=== PATIENT | male | born 2000 | race Caucasian/White ===

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

== ENCOUNTER 2022-09-13 16:19 | Emergency (ER) | payer OTHER ==
--- NOTE | 2022-09-13 16:58 | RAD REPORT ---
EXAM DESCRIPTION: CT - Spine Lumbar Wo Con - 09/13/2022 4:51 pm CLINICAL HISTORY: Radiculopathy. low back pain, radiation to legs COMPARISON: Spine Lumbar Wo Con dated 01/04/2021 TECHNIQUE: Axial noncontrast CT imaging of the lumbar spine was performed with coronal and sagittal re-formatted images. All CT scans are performed using dose optimization technique as appropriate and may include automated exposure control or mA/KV adjustment according to patient size. FINDINGS: No acute lumbar spine fracture seen. No aggressive marrow pattern or malalignment. Paraspinal tissues are normal in thickness. No paraspinal abscess or hematoma seen. There is likely a large disc herniation at L3-4 resulting in spinal canal stenosis. IMPRESSION: There is likely a large disc herniation at L3-4 resulting in spinal canal stenosis. No acute fracture.
--- NOTE | 2022-09-13 17:16 | ER ---
Nurse's Notes [facility] Name: Ritesh Mcmillan Age: 21 yrs Sex: Male : 2000 Arrival Date: 09/13/2022 Time: 16:21 Bed IW1 Private MD: Diagnosis: Other intervertebral disc disorders, lumbar region Presentation: 09/13 16:28 Chief complaint: Patient states: low back pain radiating down legs x 1 week ago. aa5 Coronavirus screen: At this time, the client does not indicate any symptoms associated with coronavirus-19. Ebola Screen: Patient denies travel to an Ebola-affected area in the 21 days before illness onset. Initial Sepsis Screen: Does the patient meet any 2 criteria? No. Patient's initial sepsis screen is negative. Does the patient have a suspected source of infection? No. Patient's initial sepsis screen is negative. Risk Assessment: Do you want to hurt yourself or someone else? Patient reports no desire to harm self or others. Onset of symptoms was August 2022. 16:28 Acuity: MARY JANE 4 aa5 16:28 Method Of Arrival: Ambulatory aa5 Historical: - Allergies: 16:28 Adderall; aa5 - PMHx: 16:28 ADD/ADHD; Hypertension; aa5 - Family history:: not pertinent. - Hospitalizations: : No recent hospitalization is reported. Vital Signs: 16:28 BP 118 / 81; Pulse 85; Resp 20 S; Temp 98.0(TE); Pulse Ox 100% on R/A; Weight 163.29 kg aa5 (R); Height 5 ft. 9 in. (175.26 cm) (R); 17:45 BP 122 / 80; Pulse 79; Resp 20; Pulse Ox 98% on R/A; vg1 16:28 Body Mass Index 53.16 (163.29 kg, 175.26 cm) aa5 ED Course: 16:21 Patient arrived in ED. as 16:27 Blair Moore MD is Attending Physician. rn 16:28 Arm band placed on. aa5 16:29 Triage completed. aa5 16:53 CT Lumbar Spine Wo Con In Process Unspecified. EDMS 18:09 Patient has correct armband on for positive identification. vg1 18:09 No provider procedures requiring assistance completed. Patient did not have IV access vg1 during this emergency room visit. Administered Medications: 17:48 Drug: Ketorolac 30 mg Route: IM; Site: right deltoid; vg1 18:10 Follow up: Response: No adverse reaction vg1 17:50 Drug: Decadron (dexamethasone) 10 mg Route: IM; Site: left deltoid; vg1 18:10 Follow up: Response: No adverse reaction vg1 Medication: 18:09 VIS not applicable for this client. vg1 Outcome: 17:16 Discharge ordered by . rn 18:08 Discharged to home ambulatory, with family. vg1 18:08 Condition: good 18:08 Discharge instructions given to patient, family, Instructed on discharge instructions, follow up and referral plans. medication usage, Demonstrated understanding of instructions, follow-up care, medications, Prescriptions given X 1. 18:10 Patient left the ED. vg1 Signatures: Dispatcher [employer] Dyan Pina Roman, MD MD rn Calderon, Audri RN RN aa5 Radha Flores RN RN vg1 Corrections: (The following items were deleted from the chart) 16:29 16:28 BP 118 / 81; Pulse 85bpm; Resp 20bpm; Spontaneous; Pulse Ox 100% RA; Temp 98.0F aa5 Temporal; aa5
--- NOTE | 2022-09-13 17:16 | EDPHYS ---
Physician Documentation [facility] Name: Ritesh Mcmillan Age: 21 yrs Sex: Male : 2000 Arrival Date: 09/13/2022 Time: 16:21 Bed IW1 Private MD: ED Physician Blair Moore HPI: 09/13 17:11 This 21 yrs old Male presents to ER via Ambulatory with complaints of Back Pain, Leg rn Pain. 17:11 The patient presents with pain that is acute. The patient presents with pain that is pattern cleaner, with no known mechanism of injury. The symptoms are located in the low back. Onset: The symptoms/episode began/occurred 1 week(s) ago. The pain radiates to the right leg and left leg. Associated signs and symptoms: Pertinent negatives: abdominal pain, fever, hematuria, incontinence, numbness, urinary retention, vomiting, weakness. Modifying factors: The patient symptoms are alleviated by nothing, the patient symptoms are aggravated by lifting, walking. Severity of symptoms: At their worst the symptoms were moderate, in the emergency department the symptoms are unchanged. The patient has not experienced similar symptoms in the past. The patient has not recently seen a physician. Pt reports low back pain, no direct trauma, family with hx of early disc problems and degenerative disc disease. Was moving boxes this past week with lifting and bending. No weakness of legs, no bowel/bladder problems. . Historical: - Allergies: 16:28 Adderall; aa5 - PMHx: 16:28 ADD/ADHD; Hypertension; aa5 - Family history:: not pertinent. - Hospitalizations: : No recent hospitalization is reported. ROS: 17:11 Constitutional: Negative for fever, chills, and weight loss, Eyes: Negative for injury, rn pain, redness, and discharge, Cardiovascular: Negative for chest pain, palpitations, and edema, Respiratory: Negative for shortness of breath, cough, wheezing, and pleuritic chest pain, Abdomen/GI: Negative for abdominal pain, nausea, vomiting, diarrhea, and constipation, Back: + lower back pain MS/Extremity: Negative for injury and deformity, Skin: Negative for injury, rash, and discoloration, Neuro: Negative for headache, weakness, numbness, tingling, and seizure. Exam: 17:11 Constitutional: Overweight male, no acute distress, ambulatory without assistance to nicu rn room. Cardiovascular: Regular rate and rhythm. No pulse deficits. Back: No spinal tenderness. MS/ Extremity: Pulses equal, no cyanosis. Neurovascular intact. Full, normal range of motion. Equal circumference. Neuro: Awake and alert, GCS 15, oriented to person, place, time, and situation Motor strength 5/5 in all extremities. Sensory grossly intact. Cerebellar exam normal. Normal gait. Vital Signs: 16:28 BP 118 / 81; Pulse 85; Resp 20 S; Temp 98.0(TE); Pulse Ox 100% on R/A; Weight 163.29 kg aa5 (R); Height 5 ft. 9 in. (175.26 cm) (R); 17:45 BP 122 / 80; Pulse 79; Resp 20; Pulse Ox 98% on R/A; vg1 16:28 Body Mass Index 53.16 (163.29 kg, 175.26 cm) aa5 MDM: 16:28 Patient medically screened. rn 17:11 Differential diagnosis: arthritis, Fatigue Fracture Obesity Osteoarthritis ruptured rn disc, disc herniation, radiculopathy. Data reviewed: vital signs, nurses notes, radiologic studies, CT scan, and as a result, I will discharge patient. Counseling: I had a detailed discussion with the patient and/or guardian regarding: the historical points, exam findings, and any diagnostic results supporting the discharge/admit diagnosis, radiology results, the need for outpatient follow up, to return to the emergency department if symptoms worsen or persist or if there are any questions or concerns that arise at home. Special discussion: I discussed with the patient/guardian in detail that at this point there is no indication for admission to the hospital. It is understood, however, that if the symptoms persist or worsen the patient needs to return immediately for re-evaluation. Based on the history and exam findings, there is no indication for further emergent testing or inpatient evaluation. I discussed with the patient/guardian the need to see the back specialist for further evaluation of the symptoms. I discussed with the patient/guardian the need to see the primary care provider for further evaluation of the symptoms. 09/13 16:34 Order name: CT Lumbar Spine Wo Con; Complete Time: 17:08 rn Administered Medications: 17:48 Drug: Ketorolac 30 mg Route: IM; Site: right deltoid; vg1 18:10 Follow up: Response: No adverse reaction vg1 17:50 Drug: Decadron (dexamethasone) 10 mg Route: IM; Site: left deltoid; vg1 18:10 Follow up: Response: No adverse reaction vg1 Disposition Summary: 09/13/22 17:16 Discharge Ordered Location: Home rn Problem: new rn Symptoms: are unchanged rn Condition: Stable rn Diagnosis - Other intervertebral disc disorders, lumbar region rn Followup: rn - With: Private Physician - When: As needed - Reason: Recheck today's complaints, Re-evaluation by your physician Discharge Instructions: - Discharge Summary Sheet rn - Herniated Disk rn - Degenerative Disk Disease rn Forms: - Medication Reconciliation Form rn - Thank You Letter rn - Antibiotic rn diabetes educator - Prescription Opioid Use rn Prescriptions: - Medrol (Morro) 4 mg Oral Tablets, Dose Pack - take 1 tablet by ORAL route as directed - follow package instructions; 1 rn packet; Refills: 0, Product Selection Permitted Signatures: Dispatcher [employer] Blair Ramsey MD MD rn Calderon, Audri, RN RN aa5 Radha Flores, RN RN vg1
[2022-09-13] MEDS ORDERED: dexAMETHasone 10 MG/ML VIAL ONE (17:47)
[2022-09-13] MEDS ORDERED: KETOROLAC 30 MG/ML INJ ONE (17:47)
[2022-09-13 18:16] VITALS: TEMP 98
[2022-09-13 18:17] VITALS: BP 122/80; O2SAT 98
== END 2022-09-13 18:10 | disposition home or self-care (01) ==
LOC: ER 16:19
DX: M51.86 Other intervertebral disc disorders, lumbar region (principal); F90.9 Attention-deficit hyperactivity disorder, unspecified type; I10 Essential (primary) hypertension; Z88.8 Allergy status to other drugs, medicaments and biological substances
CPT/HCPCS: 72131; J1100

== ENCOUNTER 2022-10-04 04:33 | Emergency (ER) | payer OTHER ==
--- NOTE | 2022-10-04 05:02 | ER ---
Nurse's Notes [facility] Name: Ritesh Mcmillan Age: 21 yrs Sex: Male : 2000 Arrival Date: 10/04/2022 Time: 04:35 Bed 20 Private MD: Diagnosis: Low back pain;Radiculopathy, lumbar region Presentation: 10/04 04:53 Chief complaint: Parent and/or Guardian states: pt was seen Sep 13 with a herniated bb disc at L3-4 has not been able to follow-up yet and the pain is getting worse and radiating down his left leg. Coronavirus screen: At this time, the client does not indicate any symptoms associated with coronavirus-19. Ebola Screen: No symptoms or risks identified at this time. Initial Sepsis Screen: Does the patient meet any 2 criteria? No. Patient's initial sepsis screen is negative. Does the patient have a suspected source of infection? No. Patient's initial sepsis screen is negative. Risk Assessment: Do you want to hurt yourself or someone else? Patient reports no desire to harm self or others. Onset of symptoms was October 04, 2022. 04:53 Method Of Arrival: Ambulatory 04:53 Acuity: MARY JANE 5 bb Triage Assessment: 05:10 General: Appears in no apparent distress. Behavior is calm, cooperative. Pain: aa9 Complains of pain in low back area. Historical: - Allergies: 04:55 Adderall; bb - Home Meds: 04:55 lisinopril 30 mg Oral tab 1 tab once daily [Active]; bb - PMHx: 04:55 ADD/ADHD; Hypertension; Herniated disc L3-4; bb - PSHx: 04:55 None; bb - Immunization history:: Client reports receiving the 2nd dose of the Covid vaccine, Pfizer. - Social history:: Smoking status: Patient denies any tobacco usage or history of. - Family history:: not pertinent. Screenin:10 [facility] ED Fall Risk Assessment (Adult) History of falling in the last 3 months, aa9 including since admission No falls in past 3 months (0 pts) Confusion or Disorientation No (0 pts) Intoxicated or Sedated No (0 pts) Impaired Gait No (0 pts) Mobility Assist Device Used No (0 pt) Altered Elimination No (0 pt) Score/Fall Risk Level 0 - 2 = Low Risk Oriented to surroundings, Maintained a safe environment. Abuse screen: Denies threats or abuse. Denies injuries from another. Nutritional screening: No deficits noted. Tuberculosis screening: No symptoms or risk factors identified. Assessment: 05:13 General: Appears comfortable, obese, Behavior is calm, cooperative. Pain: Complains of aa9 pain in low back area. Respiratory: Airway is patent Respiratory effort is even, unlabored. GI: No signs and/or symptoms were reported involving the gastrointestinal system. : No signs and/or symptoms were reported regarding the genitourinary system. Derm: Skin is intact. Vital Signs: 04:53 BP 132 / 84; Pulse 77; Resp 20 S; Temp 98(O); Pulse Ox 96% on R/A; Weight 164.65 kg bb (R); Height 5 ft. 10 in. (177.80 cm) (R); Pain 8/10; 05:11 BP 135 / 75; Pulse 79; Resp 19 S; Pulse Ox 98% on R/A; aa9 05:22 Weight 152.86 kg (M); bb 04:53 Body Mass Index 52.08 (152.86 kg, 177.80 cm) bb ED Course: 04:35 Patient arrived in ED. ja2 04:48 Jazmin Pearson, RN is Primary Nurse. aa9 04:49 Leo Morales MD is Attending Physician. rt 04:55 Triage completed. bb 04:55 Arm band placed on Patient placed in an exam room, on a stretcher, on pulse oximetry. bb Family accompanied patient. 05:10 No provider procedures requiring assistance completed. Patient did not have IV access aa9 during this emergency room visit. 05:11 Patient has correct armband on for positive identification. Adult w/ patient. aa9 Administered Medications: 05:09 Drug: Decadron (dexamethasone) 10 mg Route: IM; Site: right deltoid; aa9 05:16 Follow up: Response: No adverse reaction aa9 05:10 Drug: Ketorolac 30 mg Route: IM; Site: left deltoid; aa9 05:16 Follow up: Response: No adverse reaction aa9 Medication: 05:10 VIS not applicable for this client. aa9 Outcome: 05:00 Discharge ordered by . rt 05:11 Condition: stable aa9 05:16 Discharged to home ambulatory, with family. aa9 05:16 Discharge instructions given to patient, family, Instructed on discharge instructions, follow up and referral plans. medication usage, Demonstrated understanding of instructions, follow-up care, medications, Prescriptions given X 1. 05:18 Patient left the ED. aa9 Signatures: Keira Torres, RN RN bb Adela Eaton Aylin, RN RN aa9 Leo Morales MD MD rt
--- NOTE | 2022-10-04 05:02 | EDPHYS ---
Physician Documentation [facility] Name: Ritesh Mcmillan Age: 21 yrs Sex: Male : 2000 Arrival Date: 10/04/2022 Time: 04:35 Bed 20 Private MD: ED Physician Leo Morales HPI: 10/04 05:03 This 21 yrs old Male presents to ER via Ambulatory with complaints of Low Back Pain. rt 05:03 Patient presents to the ED with a left low back pain. He was recently diagnosed with rt protruding disks, is having difficulty getting in with a spine surgeon. Patient states that the pain has worsened overnight, keeping up from sleeping. He has pain radiating down posteriorly down his left leg. Denies bowel, bladder incontinence, saddle anesthesia. Symptoms are aching nature, not otherwise radiating, no other aggravating or elevating factors.. Historical: - Allergies: 04:55 Adderall; bb - Home Meds: 04:55 lisinopril 30 mg Oral tab 1 tab once daily [Active]; bb - PMHx: 04:55 ADD/ADHD; Hypertension; Herniated disc L3-4; bb - PSHx: 04:55 None; bb - Immunization history:: Client reports receiving the 2nd dose of the Covid vaccine, ZYOMYX. - Social history:: Smoking status: Patient denies any tobacco usage or history of. - Family history:: not pertinent. ROS: 05:03 Constitutional: Negative for fever, chills, and weight loss, Cardiovascular: Negative rt for chest pain, palpitations, and edema, Respiratory: Negative for shortness of breath, cough, wheezing, and pleuritic chest pain, Abdomen/GI: Negative for abdominal pain, nausea, vomiting, diarrhea, and constipation, : Negative for injury, bleeding, discharge, and swelling, Neuro: Negative for headache, weakness, numbness, tingling, and seizure. 05:03 Back: Positive for pain at rest, radiated pain. Exam: 05:03 Constitutional: This is a well developed, well nourished patient who is awake, alert, rt and in no acute distress. Head/Face: Normocephalic, atraumatic. Chest/axilla: Normal chest wall appearance and motion. Nontender with no deformity. No lesions are appreciated. Cardiovascular: Regular rate and rhythm with a normal S1 and S2. No gallops, murmurs, or rubs. Normal PMI, no JVD. No pulse deficits. Respiratory: Lungs have equal breath sounds bilaterally, clear to auscultation and percussion. No rales, rhonchi or wheezes noted. No increased work of breathing, no retractions or nasal flaring. Abdomen/GI: Soft, non-tender, with normal bowel sounds. No distension or tympany. No guarding or rebound. No evidence of tenderness throughout. Skin: Warm, dry with normal turgor. Normal color with no rashes, no lesions, and no evidence of cellulitis. MS/ Extremity: Pulses equal, no cyanosis. Neurovascular intact. Full, normal range of motion. Neuro: Awake and alert, GCS 15, oriented to person, place, time, and situation. Cranial nerves II-XII grossly intact. Motor strength 5/5 in all extremities. Sensory grossly intact. Cerebellar exam normal. Normal gait. Psych: Awake, alert, with orientation to person, place and time. Behavior, mood, and affect are within normal limits. 05:03 Back: Left lower lumbar paraspinal tenderness, no midline tenderness or step-off. Vital Signs: 04:53 BP 132 / 84; Pulse 77; Resp 20 S; Temp 98(O); Pulse Ox 96% on R/A; Weight 164.65 kg bb (R); Height 5 ft. 10 in. (177.80 cm) (R); Pain 8/10; 05:11 BP 135 / 75; Pulse 79; Resp 19 S; Pulse Ox 98% on R/A; aa9 05:22 Weight 152.86 kg (M); bb 04:53 Body Mass Index 52.08 (152.86 kg, 177.80 cm) bb MDM: 04:53 Patient medically screened. rt 05:03 Differential diagnosis: Herniated disc Chronic back pain, spinal epidural abscess, rt cauda equina syndrome. Data reviewed: vital signs, nurses notes. Test considered but Not performed: CT: Recent CT scan showed protruding disc, repeat scan not indicated. No emergent need for MRI.. Historians other than the Patient: Parent: Mother provided most of the history. Counseling: I had a detailed discussion with the patient and/or guardian regarding: the historical points, exam findings, and any diagnostic results supporting the discharge/admit diagnosis, the need for outpatient follow up. Administered Medications: 05:09 Drug: Decadron (dexamethasone) 10 mg Route: IM; Site: right deltoid; aa9 05:16 Follow up: Response: No adverse reaction aa9 05:10 Drug: Ketorolac 30 mg Route: IM; Site: left deltoid; aa9 05:16 Follow up: Response: No adverse reaction aa9 Disposition Summary: 10/04/22 05:00 Discharge Ordered Location: Home rt Problem: an ongoing problem rt Symptoms: are unchanged rt Condition: Stable rt Diagnosis - Low back pain rt - Radiculopathy, lumbar region rt Followup: rt - With: Private Physician - When: 2 - 3 days - Reason: Discharge Instructions: - Discharge Summary Sheet rt - Lumbosacral Radiculopathy rt Forms: - Medication Reconciliation Form rt - Thank You Letter rt - Antibiotic Education rt - Prescription Opioid Use rt Prescriptions: - Cyclobenzaprine 10 mg Oral Tablet - take 1 tablet by ORAL route every 8 hours As needed; 21 tablet; Refills: 0, rt Product Selection Permitted Signatures: Keira Torres, RN RN bb Jazmin Pearson, PRIYA RN aa9 Leo Morales MD MD rt
[2022-10-04] MEDS ORDERED: dexAMETHasone 10 MG/ML VIAL ONE (05:07)
[2022-10-04] MEDS ORDERED: KETOROLAC 30 MG/ML INJ ONE (05:07)
[2022-10-04 05:23] VITALS: BP 135/75; TEMP 98; O2SAT 98
== END 2022-10-04 05:18 | disposition home or self-care (01) ==
LOC: ER 04:33
DX: M54.16 Radiculopathy, lumbar region (principal); I10 Essential (primary) hypertension; Z88.8 Allergy status to other drugs, medicaments and biological substances
CPT/HCPCS: 96372; 99283; J1100

== ENCOUNTER 2023-05-30 19:29 | Emergency (ER) | payer OTHER, SELFPAY ==
--- OUTSIDE RECORDS SUMMARY | 2023-05-30 19:32 | XMS REPORT | Continuity of Care Document ---
:2000 Author Organization [facility] t Address [address] [place] [address] Care Team Providers Name Role Phone Maximo Jones Primary Care Physician ABBIE LAW Attending Clinician Unavailable Doctor Unassigned, [place] Attending Clinician Unavailable Abbie Viera Attending Clinician Payers Payer Name Policy Type Policy Number Effective Date Expiration Date S ource Problems This patient has no known problems. Allergies, Adverse Reactions, Alerts Allergy Allergy Status Severity Reaction(s) Onset Inactive Treating Comm ents Source Name Type Date Date Clinician HYDROXYZ DRUG Active SOB [facility] INE HCL INGREDI 2-27 ity of 00:00: [place] 00 Medical Branch BIMATOPR DRUG Active Hives Univers OST INGREDI 2-27 ity of 00:00: 00 [facility] Branch Hydroxyz Propensi Active Shortness of Univers ine Hcl ty to Breath 2-27 ity of adverse 00:00: [place] reaction 00 [facility] Bimatopr Propensi Active Hives [place] [facility] ers ost ty to 2-27 ity of adverse 00:00: [place] reaction [facility] DEXTROAM DRUG Active Other-Cmnt Univ ers PHETAMIN 03-22 ity of E-AMPHET 00:00: [place] AMINE 00 Medical Branch Dextroam Propensi Active Other - See Made U nivers phetamin ty to comments 03-22 hyper ity of e-Amphet adverse 00:00: [place] amine reaction 00 Medical s Branch Social History Social Habit Start Date Stop Date Quantity Comments Source Exposure to 2022-09-30 2022-10-10 Not sure [facility] SARS-CoV-2 (event) 00:00:00 09:45:00 Medica l Branch Sex Assigned At [birth year] [facility] 00:00:00 00:00:00 Medical Branch Smoking Status Start Date Stop Date Source Tobacco smoking consumption [facility] Medical unknown Branch Medications Ordered Filled Start Stop Current Ordering Indication Dosage Frequency Signature Comments Components Source Medication Medication Date Date Medication? Clinician (SIG) Name Name fluticasone Yes USE 1-2 Uni vers 50 6-26 SPRAYS ity of mcg/actuati 00:00: EACH [place] on nasal 00 NOSTRIL 2 Medica l spray TIMES A Branch DAY fluticasone Yes USE 1-2 Uni vers 50 6-26 SPRAYS ity of mcg/actuati 00:00: EACH [place] on nasal 00 NOSTRIL 2 Medica l spray TIMES A Branch DAY fluticasone Yes USE 1-2 Uni vers 50 6-26 SPRAYS ity of mcg/actuati 00:00: EACH [place] on nasal 00 NOSTRIL 2 Medica l spray TIMES A Branch DAY fluticasone Yes USE 1-2 Uni vers 50 6-26 SPRAYS ity of mcg/actuati 00:00: EACH [place] on nasal 00 NOSTRIL 2 Medica l spray TIMES A Branch DAY fluticasone Yes USE 1-2 Uni vers 50 6-26 SPRAYS ity of mcg/actuati 00:00: EACH [place] on nasal 00 NOSTRIL 2 Medica l spray TIMES A Branch DAY fluticasone Yes USE 1-2 Uni vers 50 6-26 SPRAYS ity of mcg/actuati 00:00: EACH [place] on nasal 00 NOSTRIL 2 Medica l spray TIMES A Branch DAY Vital Signs Vital Name Observation Time Observation Value Comments Source Body temperature 2022-10-10 16:03:00 36.5 [facility] Body weight 2022-10-10 16:03:00 170.915 kg [facility] Medical [place] Procedures Procedure Date / Time Performing Clinician Source Performed REFERRAL- 2022-12-07 05:01:00 Doctor Munoz [facility] REQUEST/RESPONSE [place] [facility] INSURANCE CORRESPONDENCE 2022-10-19 06:01:00 Doctor Munoz [facility] ASSIGNMENT OF BENEFITS 2022-10-10 15:47:01 Doctor Munoz [facility] [facility] Encounters Start End Encounter Admission Attending Care Care Encounter Source Date/Time Date/Time Type Type Clinicians Facility Department ID 2022-12-07 2022-12-07 Orders Doctor ÁLVAREZ [id number] Univers 00:00:00 00:00:00 Only Unassigned, DANIELA [id number] ity of [facility] [id number] [place] [phone] [facility] 009 Branch 2022-10-19 2022-10-19 Orders Doctor ÁLVAREZ [id number] Univers 00:00:00 00:00:00 Only Unassigned, DANIELA [id number] ity of [facility] [id number] [place] as [id number] [facility] 009 Branch 2022-10-10 2022-10-10 Office [facility] [id number] Univers 10:20:00 10:40:00 Visit Abbie PRIMARY [id number] [id number] [id number] Mo [facility]ical 198 Branch 2022-10-10 2022-10-10 Outpatient R [facility] [id number] Univers 10:20:00 10:20:00 ABBIE [facility] [facility] [place] 2022-10-10 2022-10-10 Orders Doctor PREETI [id number] Univers 00:00:00 00:00:00 Only Unassigned, DANIELA [id number] ity of [place] [facility] [id number] [place] [phone] [facility] 009 Branch Results This patient has no known results.
[2023-05-30 21:18] LABS: Absolute Lymphocytes (CBC) 1.4 K/uL (0.7-4.9); Hematocrit 40.2 % (39.6-49.0); Lymphocytes % 14.6 % (15.3-44.8); MCV 89.2 fL (80-100); Platelets 292 thou/uL (152-406)
[2023-05-30 21:19] LABS: Protime INR 1.11
[2023-05-30 21:25] LABS: Troponin High Sensitivity 3.6 pg/mL (<58.9)
--- NOTE | 2023-05-30 21:25 | RAD REPORT ---
EXAM DESCRIPTION: Asht Single View05/30/2023 8:12 pm CLINICAL HISTORY: CHEST PAIN COMPARISON: Chest Single View dated 11/05/2018; Chest Pa And Lat (2 Views) dated 05/02/2016 TECHNIQUE: Portable AP view of the chest. FINDINGS: Under penetration somewhat limits evaluation. The lungs are clear. No pneumothorax or eff usion. The cardiomediastinal contours are unremarkable. IMPRESSION: No acute cardiopulmonary process.
[2023-05-30 21:26] LABS: Potassium 4.3 mEq/L (3.5-5.1)
[2023-05-30 21:27] LABS: Magnesium 2.2 mg/dL (1.6-2.4)
[2023-05-30 21:35] LABS: Methadone ND (NEGATIVE)
[2023-05-30 21:41] LABS: Specific Gravity > 1.030 (1.005-1.030); Urine Bacteria <20 /HPF (<20); Urine Bilirubin NEGATIVE (Negative); Urine Blood Negative (Negative); Urine Clarity Turbid (Clear); Urine Color Yellow (Yellow); Urine Crystals Unidentified Few /HPF (None Seen); Urine Glucose NEGATIVE (Negative); Urine Mucus 4+ /HPF (None Seen); Urine Protein 1+ (Negative); Urine RBC <5 /HPF (None Seen); Urine Urobilinogen Normal (Normal)
[2023-05-30 21:51] LABS: Barbiturates NEGATIVE (NEGATIVE); Benzodiazepines NEGATIVE (NEGATIVE); Cocaine NEGATIVE (NEGATIVE); METHAMPHETAM NEGATIVE (NEGATIVE); Opiates NEGATIVE (NEGATIVE); Phencyclidine NEGATIVE (NEGATIVE); THC Cannibis NEGATIVE (NEGATIVE)
--- NOTE | 2023-05-31 01:16 | ER ---
Nurse's Notes [facility] Name: Ritesh Mcmillan Age: 22 yrs Sex: Male : 2000 Arrival Date: 05/30/2023 Time: 19:29 Bed 13 Private MD: Diagnosis: Chest pain, unspecified;Palpitations Presentation: 05/30 19:59 Chief complaint: Patient states: he has been having chest pain, palpitations, and ap3 inability to sleep for approx one week now. patient also reports cough and sore throat that started today. Coronavirus screen: At this time, the client does not indicate any symptoms associated with coronavirus-19. Ebola Screen: No symptoms or risks identified at this time. Initial Sepsis Screen: Does the patient meet any 2 criteria? No. Patient's initial sepsis screen is negative. Does the patient have a suspected source of infection? No. Patient's initial sepsis screen is negative. Risk Assessment: Do you want to hurt yourself or someone else? Patient reports no desire to harm self or others. Onset of symptoms was May 23, 2023. 19:59 Method Of Arrival: Ambulatory ap3 19:59 Acuity: MARY JANE 3 ap3 Triage Assessment: 20:00 General: Appears in no apparent distress. Behavior is calm, cooperative, appropriate ap3 for age. Pain: Complains of pain in chest. EENT: Reports pain when swallowing. Neuro: Level of Consciousness is awake, alert, obeys commands, Oriented to person, place, time, situation. Cardiovascular: Reports chest pain, Patient's skin is warm and dry. Respiratory: Airway is patent Respiratory effort is even, unlabored, Respiratory pattern is regular, symmetrical. Historical: - Allergies: 20:00 Adderall; ap3 - Home Meds: 20:00 lisinopril 30 mg Oral tab 1 tab once daily [Active]; ap3 - PMHx: 20:00 ADD/ADHD; Herniated disc L3-4; Hypertension; ap3 - Immunization history:: Client reports receiving the 2nd dose of the Covid vaccine. - Social history:: Smoking status: Patient denies any tobacco usage or history of. Screenin:01 [facility] ED Fall Risk Assessment (Adult) History of falling in the last 3 months, ap3 including since admission No falls in past 3 months (0 pts). Abuse screen: Denies threats or abuse. Nutritional screening: No deficits noted. Tuberculosis screening: No symptoms or risk factors identified. Assessment: 20:01 Pain: Pain does not radiate. ap3 20:05 Pain: Pain began 1 WK. jj7 Vital Signs: 19:59 Pulse 85; Resp 19; Temp 99.3; Pulse Ox 99% ; Pain 2/10; ap3 20:01 BP 145 / 70; ap3 21:00 BP 130 / 71; Pulse 81; Resp 20; Pulse Ox 98% ; Pain 0/10; jj7 22:00 BP 127 / 69; Pulse 94; Resp 20; Pulse Ox 99% ; jj7 22:12 Weight 178.7 kg; kmf 23:03 BP 154 / 83; Pulse 91; Resp 20; Pulse Ox 98% ; Pain 0/10; jj7 23:16 BP 113 / 85; Pulse 92; Resp 16; Pulse Ox 100% ; jj7 05/31 00:13 BP 146 / 84; Pulse 83; Resp 19; Pulse Ox 98% ; jj7 01:00 BP 148 / 87; Pulse 85; Resp 18; Pulse Ox 99% ; jj7 01:56 BP 141 / 77; Pulse 82; Resp 20; Pulse Ox 100% ; Pain 0/10; jj7 05/30 19:59 Pain Scale: Adult ap3 21:00 Pain Scale: Adult jj7 23:03 Pain Scale: Adult jj7 01:56 Pain Scale: Adult jj7 ED Course: 05/30 19:35 Patient arrived in ED. jj6 19:48 Alonso Hughes PA is PHCP. cp 19:48 Chandler Zhu DO is Attending Physician. cp 20:00 Triage completed. ap3 20:01 Arm band placed on right wrist. ap3 20:01 Patient maintains SpO2 saturation greater than 95% on room air. ap3 20:05 Juan Antonio Nascimento, PRIYA is Primary Nurse. jj7 20:05 Patient has correct armband on for positive identification. Bed in low position. Call [facility] light in reach. Adult w/ patient. Client placed on continuous cardiac and pulse oximetry monitoring. NIBP monitoring applied. night monitor on. Pulse ox on. NIBP on. 20:14 XRAY Chest (1 view) In Process Unspecified. EDMS 20:35 Pierre Trujillo MD is Attending Physician. cp 20:40 Inserted saline lock: 20 gauge in right hand, using aseptic technique. Blood collected. jj7 20:48 Strep Sent. jj7 20:48 Influenza Screen (a \T\ B) Sent. jj7 20:48 COVID-19 SARS RT PCR Sent. jj7 20:49 Basic Metabolic Panel Sent. jj7 20:49 CBC with Diff Sent. jj7 20:49 D-Dimer Sent. jj7 20:49 Magnesium Sent. jj7 20:49 PT-INR Sent. jj7 20:49 Troponin HS Sent. jj7 22:43 Inserted saline lock: 22 gauge in right antecubital area, using aseptic technique. kmf 23:16 CT Chest For PE Angio In Process Unspecified. EDSD 05/31 01:14 Sudheer Harris MD is Referral Physician. cp 01:56 Provided Education on: DISCHARGE INSTRUCTIONS. jj7 01:56 No provider procedures requiring assistance completed. IV discontinued, intact, jj7 bleeding controlled, No redness/swelling at site. Pressure dressing applied. Administered Medications: No medications were administered Medication: 01:56 VIS not applicable for this client. jj7 Outcome: 01:15 Discharge ordered by . cp 01:56 Discharged to home ambulatory, with family, jj7 01:56 Condition: improved 01:56 Discharge instructions given to patient, Instructed on discharge instructions, Demonstrated understanding of instructions, 02:01 Patient left the ED. jj7 Signatures: Dispatcher [employer] EDSD Alonso Hughes PA PA cp Prokisch, Amanda RN RN [email or web address] Lucretia Mathew jj6 Juan Antonio Nascimento RN RN jj7 Sahyy [facility]
--- NOTE | 2023-05-31 01:16 | EDPHYS ---
Physician Documentation [facility] Name: Ritesh Mcmillan Age: 22 yrs Sex: Male : 2000 Arrival Date: 05/30/2023 Time: 19:29 Bed 13 Private MD: ED Physician Pierre Trujillo HPI: 05/30 20:05 This 22 yrs old Male presents to ER via Ambulatory with complaints of Chest Pain. cp 20:05 The patient or guardian reports chest pain that is located primarily in the anterior cp chest wall. 20:05 The patient presents with a history of irregular heart beat, heart racing. Context: The cp symptoms occur at rest. 20:05 Onset: The symptoms/episode began/occurred 1 week(s) ago. cp 20:05 Associated signs and symptoms: Pertinent positives: cough, sore throat, difficulty cp sleeping, Pertinent negatives: fever, SOB, syncope, lower extremity swelling and/or pain. Historical: - Allergies: 20:00 Adderall; ap3 - Home Meds: 20:00 lisinopril 30 mg Oral tab 1 tab once daily [Active]; ap3 - PMHx: 20:00 ADD/ADHD; Herniated disc L3-4; Hypertension; ap3 - Immunization history:: Client reports receiving the 2nd dose of the Covid vaccine. - Social history:: Smoking status: Patient denies any tobacco usage or history of. ROS: 20:05 Constitutional: Negative for body aches, chills, fever, poor PO intake, cp 20:05 Eyes: Negative for injury, pain, redness, and discharge, cp 20:05 ENT: Negative for drainage from ear(s), ear pain, difficulty swallowing, difficulty handling secretions, 20:05 Cardiovascular: Positive for chest pain, palpitations, Negative for edema, 20:05 Respiratory: Positive for cough, Negative for shortness of breath, wheezing, 20:05 Abdomen/GI: Negative for abdominal pain, vomiting, diarrhea, constipation, 20:05 Back: Negative for pain at rest, pain with movement, 20:05 Neuro: Negative for altered mental status, dizziness, headache, syncope, weakness, 20:05 All other systems are negative, Exam: 20:10 Constitutional: The patient appears in no acute distress, alert, awake, cp non-diaphoretic, non-toxic, well developed, well nourished, obese, 20:10 Head/Face: Normocephalic, atraumatic. cp 20:10 Eyes: Periorbital structures: appear normal, Conjunctiva: normal, no exudate, no injection, Sclera: no appreciated abnormality, Lids and lashes: appear normal, bilaterally, 20:10 ENT: External ear(s): are unremarkable, Nose: is normal, Mouth: Lips: moist, Oral mucosa: pink and intact, moist, Posterior pharynx: Airway: no evidence of obstruction, patent, Tonsils: no enlargement, no erythema, no exudate, 20:10 Neck: ROM/movement: is normal, is supple, without pain, no range of motions limitations, no meningismus, 20:10 Chest/axilla: Inspection: normal, 20:10 Cardiovascular: Rate: normal, Rhythm: regular, Edema: is not appreciated, JVD: is not appreciated, 20:10 Respiratory: the patient does not display signs of respiratory distress, Respirations: normal, no use of accessory muscles, no retractions, labored breathing, is not present, Breath sounds: are clear throughout, no decreased breath sounds, no stridor, no wheezing, 20:10 Abdomen/GI: Inspection: obese Palpation: abdomen is soft and non-tender, in all quadrants, 20:10 Back: pain, is absent, ROM is normal, 20:10 Neuro: Orientation: to person, place \T\ time. Mentation: is normal, Motor: moves all fours, strength is normal, Sensation: is normal, 20:23 ECG was reviewed by the Attending Physician. cp Vital Signs: 19:59 Pulse 85; Resp 19; Temp 99.3; Pulse Ox 99% ; Pain 2/10; ap3 20:01 BP 145 / 70; ap3 21:00 BP 130 / 71; Pulse 81; Resp 20; Pulse Ox 98% ; Pain 0/10; jj7 22:00 BP 127 / 69; Pulse 94; Resp 20; Pulse Ox 99% ; jj7 22:12 Weight 178.7 kg; kmf 23:03 BP 154 / 83; Pulse 91; Resp 20; Pulse Ox 98% ; Pain 0/10; jj7 23:16 BP 113 / 85; Pulse 92; Resp 16; Pulse Ox 100% ; jj7 05/31 00:13 BP 146 / 84; Pulse 83; Resp 19; Pulse Ox 98% ; jj7 01:00 BP 148 / 87; Pulse 85; Resp 18; Pulse Ox 99% ; jj7 01:56 BP 141 / 77; Pulse 82; Resp 20; Pulse Ox 100% ; Pain 0/10; jj7 05/30 19:59 Pain Scale: Adult ap3 21:00 Pain Scale: Adult jj7 23:03 Pain Scale: Adult jj7 01:56 Pain Scale: Adult jj7 MDM: 05/30 20:15 Patient medically screened. 05/31 01:15 Data reviewed: vital signs, nurses notes, lab test result(s), EKG, radiologic studies, cp CT scan, plain films. 01:15 I considered the following discharge prescriptions or medication management in the emergency department Medications were administered in the Emergency Department. See MAR. Independent interpretation of the following test(s) in the Emergency Department EKG: See my EKG interpretation above. Care significantly affected by the following chronic conditions: Hypertension. 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 Response to treatment: the patient's symptoms have mildly improved after treatment, and as a result, I will discharge patient. Special discussion: Based on the patient's history, exam, and Dx evaluation, there is no indication for emergent intervention or inpatient Tx. It is understood by the patient/guardian that if the Sx's persist or worsen they need to return immediately for re-evaluation. 05/30 20:00 Order name: Basic Metabolic Panel; Complete Time: 21:42 05/30 21:42 Interpretation: Normal except: NA 135. 05/30 20:00 Order name: CBC with Diff; Complete Time: 21:42 05/30 21:42 Interpretation: Normal except: ALIE% 77.8; LYM% 14.6. 05/30 20:00 Order name: D-Dimer; Complete Time: 21:42 05/30 21:42 Interpretation: Abnormal: D-DIMER 705. 05/30 20:00 Order name: Magnesium; Complete Time: 21:42 cp 05/30 20:00 Order name: PT-INR; Complete Time: 21:42 cp 05/30 20:00 Order name: Troponin HS; Complete Time: 21:42 cp 05/30 20:00 Order name: Urinalysis W/Microscopic; Complete Time: 21:42 cp 05/30 21:43 Interpretation: Normal except: UCLA Turbid; Urine SG > 1.030; UKET TRACE; UPROT 1+; cp MUCUS 4+. 05/30 20:00 Order name: UDS; Complete Time: 01:08 cp 05/30 20:00 Order name: COVID-19 SARS RT PCR; Complete Time: 21:42 cp 05/30 20:00 Order name: Influenza Screen (a \T\ B); Complete Time: 21:42 cp 05/30 20:00 Order name: Strep cp 05/30 21:19 Order name: Throat Culture EDMS 05/30 20:00 Order name: XRAY Chest (1 view); Complete Time: 21:42 cp 05/30 21:42 Order name: CT Chest For PE Angio; Complete Time: 03:01 cp 05/30 20:00 Order name: EKG; Complete Time: 20:01 cp 05/30 20:00 Order name: Cardiac monitoring; Complete Time: 20:20 cp 05/30 20:00 Order name: EKG - Nurse/Tech; Complete Time: 20:20 cp 05/30 20:00 Order name: IV Saline Lock; Complete Time: 20:48 cp 05/30 20:00 Order name: Labs collected and sent; Complete Time: 20:48 cp 05/30 20:00 Order name: O2 Per Protocol; Complete Time: 20:48 cp 05/30 20:00 Order name: O2 Sat Monitoring; Complete Time: 20:48 cp EC05/30 20:23 Rate is 89 beats/min. Rhythm is regular. DE interval is normal. QRS interval is normal. cp QT interval is normal. T waves are Inverted in lead aVR. Interpreted by me. Reviewed by me. Administered Medications: No medications were administered Disposition Summary: 05/31/23 01:15 Discharge Ordered Notes: Location: Home cp Problem: new cp Symptoms: have improved cp Condition: Stable cp Diagnosis - Chest pain, unspecified cp - Palpitations cp Followup: cp - With: Sudheer Harris MD - When: 2 - 3 days - Reason: Recheck today's complaints Discharge Instructions: - Discharge Summary Sheet cp - Nonspecific Chest Pain, Adult cp - Palpitations cp - Ambulatory Cardiac Monitoring cp - Managing Stress, Adult cp - Managing Anxiety, Adult cp Forms: - Medication Reconciliation Form cp - Thank You Letter cp - Antibiotic Education cp - Prescription Opioid Use cp - Patient Portal Instructions cp - Leadership Thank You Letter cp Addendum: 06/01/2023 03:02 Co-signature as Attending Physician, Pierre Trujillo MD. e c2 Signatures: Dispatcher [employer] EDMS Alonso Hughes PA PA cp Prokisch, Amanda, RN RN ap3 Pierre Trujillo MD MD ec2
[2023-05-31 05:35] VITALS: TEMP 99.3
[2023-05-31 05:44] VITALS: BP 141/77; O2SAT 100
--- NOTE | 2023-05-31 12:25 | EKG ---
Test Date: 2023-05-30 Test Time: 20:17:46 Metal Painter: CHELSEY MEASUREMENT RESULTS: Intervals: Rate: 89 MD: 144 QRSD: 100 QT: 350 QTc: 425 [place]: P: 43 MD: 144 QRS: 33 T: 26 INTERPRETIVE STATEMENTS: Sinus rhythm with marked sinus arrhythmia Cannot rule out Anterior infarct, age undetermined Abnormal ECG No previous ECG available for comparison Electronically Signed On 05-31-23 12:23:22 CDT by Sudheer Harris
--- NOTE | 2023-05-31 14:36 | RAD REPORT ---
EXAM DESCRIPTION: CT Angiography Chest With Intravenous Contrast CLINICAL HISTORY: The patient is 22 years old and is Male; Chest pain;Palpitations TECHNIQUE: Axial computed tomographic angiography images of the chest with intravenous contrast. S agittal and coronal reformatted images were created and reviewed. This CT exam was performed using one or more of the following dose reduction techniques: automated exposure control, adjustment of t he mA and/or kV according to patient size, and/or use of iterative reconstruction technique. MIP reconstructed images were created and reviewed. COMPARISON: No relevant prior studies available. FINDINGS: LIMITATIONS: Suboptimal study secondary to artifact related to patient body habitus. PULMONARY ARTERIES: There are no obvious filling defects identified within the pulmonary arteries to suggest pulmonary embolism. AORTA: No acute findings. No thoracic aortic aneurysm. LUNGS: Unremarkable. No mass. No consolidation. PLEURAL SPACE: Unremarkable. No significant effusion. No pneumothorax. HEART: Unremarkable. No cardiomegaly. No significant pericardial effusion. No evidence of R V dysfunction. BONES/JOINTS: No acute fracture. No dislocation. SOFT TISSUES: Unremarkable. LYMPH NODES: Bilateral axillary lymph nodes are present, mildly prominent. LIVER: The liver is enlarged and fatty. IMPRESSION: 1. No evidence of pulmonary embolism. 2. Prominent bilateral axillary chain lymph nodes which may be reactive. Electronically signed by: Vero Motley MD 05/31/2023 1:02 AM CDT Due to temporary technical issues with the PACS/Fluency reporting system, reports are being signed by the in house radiologists without review as a courtesy to insure prompt reporting. The interpreting radiologist is fully responsible for the content of the report.
== END 2023-05-31 02:01 | disposition home or self-care (01) ==
LOC: ER 19:29
DX: R07.89 Other chest pain (principal); R00.2 Palpitations
CPT/HCPCS: 36415; 71045; 71275; 80048; 80307; 81001; 83735; 84484; 85025; 85379; 85610; 87070; 87081; 87635; 87804; 93005; Q9967

== ENCOUNTER → 2023-08-26 | Emergency (ER) | payer OTHER, SELFPAY ==
--- OUTSIDE RECORDS SUMMARY | 2023-08-26 15:41 | XMS REPORT | Continuity of Care Document ---
Author Name Unknown Address [address] [place] [address] [facility] thconnect Address 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 BIMATOPR OST DRUG INGREDI Active Hives 10-10 00:00: 00 [facility] Hydroxyz ine Hcl Propensi ty to adverse reaction s Active Shortness of Breath 10-10 00:00: 00 [facility] Bimatopr ost Propensi ty to adverse reaction s Active Hives 10-10 00:00: [address] [facility] DEXTROAM PHETAMIN E-AMPHET AMINE DRUG Active Other-Cmnt 03-22 00:00: 00 [facility] Dextroam phetamin e-Amphet amine Propensi ty to adverse reaction s Active Other - See comments 03-22 00:00: [address] [facility] Social History Social Habit Start Date Stop Date Quantity Comments Source Exposure to SARS-CoV-2 (event) 2022-09-30 00:00:00 2022-10-10 09:45:00 Not sure [facility] Sex Assigned At 2000 00:00:00 2000 00:00:00 [facility] Smoking Status Start Date Stop Date Source Tobacco smoking consumption unknown [facility] Medications Ordered Medication Name Filled Medication Name Start Date Stop Date Current Medication? Ordering Clinician Indication Dosage Frequency Signature (SIG) Comments Components Source fluticasone 50 mcg/actuati on nasal spray 02-06 00:00: 00 Yes USE 1-2 SPRAYS EACH NOSTRIL [address] [facility] fluticasone 50 mcg/actuati on nasal spray 02-06 00:00: 00 Yes USE 1-2 SPRAYS EACH NOSTRIL [address] [facility] fluticasone 50 mcg/actuati on nasal spray 02-06 00:00: 00 Yes USE 1-2 SPRAYS EACH NOSTRIL [address] [facility] fluticasone 50 mcg/actuati on nasal spray 02-06 00:00: 00 Yes USE 1-2 SPRAYS EACH NOSTRIL [address] [facility] fluticasone 50 mcg/actuati on nasal spray 02-06 00:00: 00 Yes USE 1-2 SPRAYS EACH NOSTRIL [address] [facility] fluticasone 50 mcg/actuati on nasal spray 02-06 00:00: 00 Yes USE 1-2 SPRAYS EACH NOSTRIL [address] [facility] Vital Signs Vital Name Observation Time Observation Value Comments S ource Body temperature 2022-10-10 16:03:00 36.5 Mary Ellen [facility] Body weight 2022-10-10 16:03:00 170.915 kg [facility] Procedures Procedure Date / Time Performed Performing Clinician Source REFERRAL- REQUEST/RESPONSE 2022-12-07 05:01:00 Doctor Unassigned, [place] [facility] INSURANCE CORRESPONDENCE 2022-10-19 06:01:00 Doc tor Unassigned, [place] [facility] ASSIGNMENT OF BENEFITS 2022-10-10 15:47:01 Docto r Unassigned, [place] [facility] Encounters Start Date/Time End Date/Time Encounter Type Admission Type Attending [facility] Facility Care Department Encounter ID Source 2023-08-23 15:52:29 2023-08-23 15:52:29 Outpatient [facility] [id number] J Luis Araujo [place] 2023-06-26 14:45:43 2023-06-26 14:45:43 Outpatient [facility] [id number] J Luis Araujo [place] 2023-04-26 15:07:58 2023-04-26 15:07:58 Outpatient [facility] [id number] J Luis Araujo [place] 2022-12-07 00:00:00 2022-12-07 00:00:00 Orders Only Doctor Unassigned, [place] [facility] [id number] [facility] 2022-10-19 00:00:00 2022-10-19 00:00:00 Orders Only Doctor Unassigned, [place] [facility] [id number] [facility] 2022-10-10 10:20:00 2022-10-10 10:40:00 Office Visit Abbie West [facility] [id number] [facility] 2022-10-10 10:20:00 2022-10-10 10:20:00 Outpatient Paul [facility] [id number] [facility] 2022-10-10 00:00:00 2022-10-10 00:00:00 Orders Only Doctor Unassigned, [place] [facility] [id number] [facility]
--- NOTE | 2023-08-26 18:16 | ER ---
Nurse's Notes [facility] Name: Ritesh Mcmillan Age: 22 yrs Sex: Male : 2000 Arrival Date: 08/26/2023 Time: 15:39 Bed IW1 Private MD: Diagnosis: Acute upper respiratory infection, unspecified;Unspecified conjunctivitis Presentation: 08/26 16:15 Chief complaint: Patient states: congestion, headache, eye irritation, sore throat, nj1 right ear pain since Monday. Seen at the clinic Monday but he has been getting worse. Coronavirus screen: Vaccine status: Patient reports receiving the 2nd dose of the covid vaccine. Ebola Screen: Patient denies travel to an Ebola-affected area in the 21 days before illness onset. Initial Sepsis Screen: Does the patient meet any 2 criteria? No. Patient's initial sepsis screen is negative. Does the patient have a suspected source of infection? No. Patient's initial sepsis screen is negative. Risk Assessment: Do you want to hurt yourself or someone else? Patient reports no desire to harm self or others. Onset of symptoms was August 21, 2022. 16:15 Method Of Arrival: Ambulatory [facility] 16:15 Acuity: MARY JANE 3 nj Historical: - Allergies: 16:18 Adderall; nj1 - Home Meds: 16:18 lisinopril 30 mg Oral tab 1 tab once daily [Active]; nj1 - PMHx: 16:18 ADD/ADHD; Hypertension; Herniated disc L3-4; nj1 - Immunization history:: Client reports receiving the 2nd dose of the Covid vaccine. - Social history:: Smoking status: Patient denies any tobacco usage or history of. Assessment: 18:20 Reassessment: Patient appears in no apparent distress at this time. Patient is alert, nj1 oriented x 3, equal unlabored respirations, skin warm/dry/pink. Vital Signs: 16:15 BP 168 / 72; Pulse 88; Resp 18; Temp 99.2(TE); Pulse Ox 98% ; Weight 178.26 kg; Height nj1 5 ft. 8 in. ; Pain 4/10; 16:15 Body Mass Index 59.75 (178.26 kg, 172.72 cm) [facility] 16:15 Pain Scale: Adult [facility] ED Course: 15:44 Patient arrived in ED. ts1 15:49 Evelyn Jack FNP-C [facility]. kb 15:49 Alonso Sahu MD is Attending Physician. kb 16:18 Triage completed. nj1 16:18 Arm band placed on right wrist. nj1 16:49 [place] Screen Profile Sent. bc6 18:20 Patient did not have IV access during this emergency room visit. nj1 18:20 No provider procedures requiring assistance completed. nj1 Administered Medications: No medications were administered Outcome: 18:15 Discharge ordered by MD. kb 18:20 Discharged to home ambulatory, nj1 18:20 Condition: stable 18:20 Discharge instructions given to patient, family, Instructed on discharge instructions, follow up and referral plans. medication usage, Demonstrated understanding of instructions, follow-up care, medications, Prescriptions given X 1, 18:37 Patient left the ED. nj1 Signatures: Evelyn Jack FNP-C FNP-Falguni Miguel 6 Debi Pizano RN RN nj1 Cari Petit PAS PAS ts1
--- NOTE | 2023-08-26 18:16 | EDPHYS ---
Physician Documentation [facility] Name: Ritesh Mcmillan Age: 22 yrs Sex: Male : 2000 Arrival Date: 08/26/2023 Time: 15:39 Bed IW1 Private MD: ED Physician Alonso Sahu HPI: 08/26 18:09 This 22 yrs old Male presents to ER via Ambulatory with complaints of Chest Congestion, kb Headache. 18:09 Patient is a 22-year-old male who presents for cough, congestion, headache, sore kb throat, ear pain that started 1 week ago. States his eyes got red started watering today. Sister has similar symptoms at home.. Historical: - Allergies: 16:18 Adderall; nj1 - Home Meds: 16:18 lisinopril 30 mg Oral tab 1 tab once daily [Active]; nj1 - PMHx: 16:18 ADD/ADHD; Hypertension; Herniated disc L3-4; nj1 - Immunization history:: Client reports receiving the 2nd dose of the Covid vaccine. - Social history:: Smoking status: Patient denies any tobacco usage or history of. ROS: 18:08 Constitutional: Negative for fever, chills, and weight loss, kb 18:08 Eyes: Positive for discharge, redness, 18:08 ENT: Positive for ear pain, rhinorrhea, sinus congestion, sinus pain, sore throat, 18:08 Respiratory: Positive for cough, 18:08 Neuro: Positive for headache, 18:08 All other systems are negative, Exam: 18:08 Constitutional: This is a well developed, well nourished patient who is awake, alert, kb and in no acute distress. Head/Face: Normocephalic, atraumatic. ENT: Moist Mucous membranes Cardiovascular: Regular rate Respiratory: Respirations even and unlabored. No increased work of breathing. Talking in full sentences Skin: Warm, dry with normal turgor. Normal color. MS/ Extremity: Pulses equal, no cyanosis. Neurovascular intact. Full, normal range of motion. Neuro: Awake and alert, GCS 15, oriented to person, place, time, and situation. Moves all extremities. Normal gait. 18:08 Eyes: Conjunctiva: injected, bilaterally, Vital Signs: 16:15 BP 168 / 72; Pulse 88; Resp 18; Temp 99.2(TE); Pulse Ox 98% ; Weight 178.26 kg; Height nj1 5 ft. 8 in. ; Pain 4/10; 16:15 Body Mass Index 59.75 (178.26 kg, 172.72 cm) nj1 16:15 Pain Scale: Adult nj1 MDM: 15:49 Patient medically screened. kb 18:09 Differential diagnosis: flu, covid, strep, uri, mono. Data reviewed: vital signs, kb nurses notes. Historians other than the Patient: Parent: mother. Counseling: I had a detailed discussion with the patient and/or guardian regarding the historical points, exam findings, and any diagnostic results supporting the discharge/admit diagnosis, lab results, the need for outpatient follow up, a family practitioner, to return to the emergency department if symptoms worsen or persist or if there are any questions or concerns that arise at home. 08/26 16:08 Order name: Flu; Complete Time: 18:08 kb 08/26 16:08 Order name: SARS-COV-2 RT PCR; Complete Time: 17:00 kb 08/26 16:08 Order name: Strep; Complete Time: 18:08 kb 08/26 16:08 Order name: [place] Screen Profile; Complete Time: 17:00 kb 08/26 17:06 Order name: Throat Culture EDMS Administered Medications: No medications were administered Disposition Summary: 08/26/23 18:15 Discharge Ordered Notes: Location: Home kb Condition: Stable kb Diagnosis - Acute upper respiratory infection, unspecified kb - Unspecified conjunctivitis kb Followup: kb - With: Emergency Department - When: As needed - Reason: Worsening of condition Followup: kb - With: Private Physician - When: 2 - 3 days - Reason: Recheck today's complaints, Continuance of care, Re-evaluation by your physician Discharge Instructions: - Discharge Summary Sheet kb - Viral Conjunctivitis, Adult kb - Viral Illness, Adult kb Forms: - Medication Reconciliation Form kb - Thank You Letter kb - Antibiotic Education kb - Prescription Opioid Use kb - Patient Portal Instructions kb - Leadership Thank You Letter kb - Work release form eb Prescriptions: - Vigamox 0.5 % Ophthalmic Drops - instill 1 drop OPHTHALMIC route every 8 hours for 7 days; 5 milliliter; kb Refills: 0, Product Selection Permitted Signatures: Dispatcher [employer] EDMS Guero, Evelyn, INCENDIARY POWDER MIXER-C INCENDIARY POWDER MIXER-Ckb Harinder, Debi, RN RN nj1
[2023-08-26 20:48] VITALS: BP 168/72; TEMP 99.2; O2SAT 98
== END ==
LOC: ER 15:39
DX: J06.9 Acute upper respiratory infection, unspecified (principal); H10.9 Unspecified conjunctivitis; Z11.52 Encounter for screening for COVID-19; I10 Essential (primary) hypertension; Z88.8 Allergy status to other drugs, medicaments and biological substances
CPT/HCPCS: 36415; 86308; 87070; 87081; 87635; 87804; 99283

== ENCOUNTER 2024-04-10 14:17 | Emergency (ER) | payer OTHER ==
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
[2024-04-10] MEDS ORDERED: NA CHLORIDE 0.9% 1,000 ML ONE (15:08)
[2024-04-10] MEDS ORDERED: LIDOCAINE VISCOUS 2% 10ML ORAL SOLN ONE (15:08)
[2024-04-10] MEDS ORDERED: MAGNES/ALUMIN/SIMET 30ML UCUP ONE (15:08)
[2024-04-10] MEDS ORDERED: FAMOTIDINE 20 MG/2 ML VIAL IV ONE (15:08)
--- NOTE | 2024-04-10 15:15 | RAD REPORT ---
EXAM DESCRIPTION: CTAbdomen Pelvis W Contrast - 04/10/2024 3:09 pm CLINICAL HISTORY: Abdominal pain. upper abd pain COMPARISON: No comparisons TECHNIQUE: Biphasic CT imaging of the abdomen and pelvis was performed with 100 ml non-ionic IV cont rast. All CT scans are performed using dose optimization technique as appropriate and may include automated exposure control or mA/KV adjustment according to patient size. FINDINGS: The lung bases are clear. The liver, spleen, pancreas, adrenal glands and kidneys are within normal limits. No bowel obstruction, free air, free fluid or abscess. The appendix is normal. No evidence of signi ficant lymphadenopathy. No suspicious bony findings. IMPRESSION: No acute intra-abdominal or pelvic finding.
[2024-04-10 15:18] LABS: Absolute Basophils 0.1 K/uL (0-0.5); Absolute Monocytes 0.6 K/uL (0.1-1.3); Absolute Neutrophil 6.1 K/uL (1.8-8.0); Basophils % 0.6 % (0-1.3); Eosinophils % 0.5 % (0-4.4); Hematocrit 42.1 % (39.6-49.0); Hemoglobin 13.9 g/dL (13.6-17.9); MPV 8.3 fL (7.6-11.3); Neutrophils % 68.9 % (41.7-73.7); Platelets 311 thou/uL (152-406); RBC Red Blood Cell Count 4.63 M/uL (4.33-5.43)
[2024-04-10 15:39] LABS: Albumin 3.9 g/dL (3.4-5.0); Anion Gap 9.4 mEq/L (5.0-15.0); Bilirubin Total 0.4 mg/dL (0.2-1.0); Globulin 3.9 g/dL (2.3-3.5); Potassium 3.4 mEq/L (3.5-5.1); Protein, Total 7.8 g/dL (6.4-8.2); Troponin High Sensitivity 3.7 pg/mL (<58.9)
[2024-04-10 17:18] LABS: Sqamous Epithelial None Seen /HPF (None Seen); Urine Bacteria None Seen /HPF (<20); Urine Bilirubin NEGATIVE (Negative); Urine Blood Negative (Negative); Urine Clarity Clear (Clear); Urine Color Yellow (Yellow); Urine Culture Reflex Order NOT NEEDED; Urine Glucose NEGATIVE (Negative); Urine Ketones NEGATIVE (Negative); Urine Microscopic Reflex YN ORDER UMIC; Urine Mucus 2+ /HPF (None Seen); Urine Nitrite NEGATIVE (Negative); Urine Protein TRACE (Negative); Urine RBC <5 /HPF (None Seen); Urine Urobilinogen 2+ (Normal); Urine WBC <5 /HPF (<5)
[2024-04-10 17:29] LABS: Specific Gravity > 1.030 (1.005-1.030)
--- NOTE | 2024-04-10 17:38 | EDPHYS ---
Physician Documentation [facility] Name: Ritesh Mcmillan Age: 23 yrs Sex: Male : 2000 Arrival Date: 04/10/2024 Time: 14:17 Bed 16 Private MD: ED Physician Blair Moore HPI: 04/10 15:43 This 23 yrs old Male presents to ER via Ambulatory with complaints of Chest Tightness - rn x3days. 15:43 The patient or guardian reports chest pain that is located primarily in the substernal rn area. The pain does not radiate. Associated signs and symptoms: Pertinent positives: None. Pertinent negatives: shortness of breath, syncope, vomiting. The chest pain is described as a heaviness, a pressure. Modifying factors: The symptoms are alleviated by nothing. the symptoms are aggravated by nothing. Severity of pain: At its worst the pain was mild in the emergency department the pain is unchanged. The patient has not experienced similar symptoms in the past. The patient has not recently seen a physician. Patient reports intermittent chest tightness for the last 3 days. Associated with heartburn. No trauma. No fever. No cough. No trauma. No abdominal pain. Family history of heart disease but not until their 50s.. Historical: - Allergies: 14:20 Adderall; ll1 14:20 vasotan; ll1 - PMHx: 14:20 Hypertension; Herniated disc L3-4; ADD/ADHD; ll1 - PSHx: 14:20 None; ll1 - Immunization history:: Adult Immunizations up to date. - Infectious Disease History:: Denies. - Social history:: Smoking status: Patient denies any tobacco usage or history of. - Family history:: not pertinent. - Hospitalizations: : No recent hospitalization is reported. ROS: 15:43 Constitutional: Negative for fever, chills, and weight loss, Cardiovascular: Positive rn for chest pain Respiratory: Negative for shortness of breath, cough, wheezing, and pleuritic chest pain, Abdomen/GI: Negative for abdominal pain, nausea, vomiting, diarrhea, and constipation, MS/Extremity: Negative for injury and deformity, Skin: Negative for injury, rash, and discoloration, Neuro: Negative for headache, weakness, numbness, tingling, and seizure, Exam: 15:43 Constitutional: Overweight male, no acute distress, tearful Cardiovascular: Regular rn rate and rhythm. No pulse deficits. Respiratory: No increased work of breathing, no retractions or nasal flaring. Abdomen/GI: Soft, non-tender MS/ Extremity: Pulses equal, no cyanosis. Neuro: Awake and alert, GCS 15 15:54 ECG was reviewed by the Attending Physician. rn Vital Signs: 14:21 BP 155 / 75; Pulse 89; Resp 17; Temp 97.5; Pulse Ox 97% ; Weight 172.37 kg; Height 5 ll1 ft. 9 in. ; Pain 2/10; 16:21 BP 145 / 74; Pulse 74; Resp 18; Pulse Ox 100% on R/A; mb9 17:55 BP 132 / 82; Pulse 70; Resp 18; Pulse Ox 100% on R/A; mb9 14:21 Body Mass Index 56.12 (172.37 kg, 175.26 cm) ll1 14:21 Pain Scale: Adult ll1 MDM: 14:22 Patient medically screened. rn 17:37 Differential diagnosis: acute pericarditis, anxiety, cholecystitis, Cholelithiasis rn costochondritis, esophagitis, gastritis, gastroesophageal reflux disease (GERD), pancreatitis, peptic ulcer disease. Data reviewed: vital signs, nurses notes, lab test result(s), radiologic studies, CT scan, and as a result, I will discharge patient. Counseling: I had a detailed discussion with the patient and/or guardian regarding the historical points, exam findings, and any diagnostic results supporting the discharge/admit diagnosis, lab results, radiology results, the need for outpatient follow up, to return to the emergency department if symptoms worsen or persist or if there are any questions or concerns that arise at home. ED course: No acute findings and workup. Given age and lack of findings most likely GI related. Will discharge home with antacid prescription as GI cocktail and Pepcid resolved pain.. 04/10 14:35 Order name: CBC with Diff; Complete Time: 15:42 rn 04/10 14:35 Order name: CMP; Complete Time: 15:42 rn 04/10 14:35 Order name: Lipase; Complete Time: 15:42 rn 04/10 14:35 Order name: Urinalysis w/ reflexes; Complete Time: 17:37 rn 04/10 14:35 Order name: Troponin High Sensitivity; Complete Time: 15:42 rn 04/10 15:22 Order name: CREATININE WHOLE BLOOD; Complete Time: 15:42 EDMS 04/10 14:35 Order name: CT Abd/Pelvis - IV Contrast Only rn 04/10 14:30 Order name: EKG; Complete Time: 14:30 ll1 04/10 14:30 Order name: EKG - Nurse/Tech; Complete Time: 14:30 ll1 04/10 14:35 Order name: IV Saline Lock; Complete Time: 15:20 rn 04/10 14:35 Order name: Labs collected and sent; Complete Time: 15:20 rn EC:54 Rate is 86 beats/min. Rhythm is regular. QRS [place] is Normal. QT interval is normal. No rn Q waves. T waves are Normal. No ST changes noted. Clinical impression: NSR, short IA. Interpreted by me. Reviewed by me. Administered Medications: 15:20 Drug: NS 0.9% IV 1000 ml IV at 1 bolus Per protocol; 1000 mL bolus Route: IV; Rate: 1 mb9 bolus; Site: right antecubital; 16:21 Follow up: Response: No adverse reaction; IV Status: Completed infusion mb9 15:20 Drug: Famotidine IVP 20 mg IVP once; dilute with 10 mL 0.9% NaCl; give over 2 minutes mb9 Route: IVP; Site: right antecubital; 16:21 Follow up: Response: No adverse reaction mb9 15:20 Drug: GI Cocktail without - (Maalox PO 30 ml, Lidocaine Mucous Membrane 2 % 15 mb9 ml) PO once Route: PO; 16:21 Follow up: Response: No adverse reaction mb9 Disposition Summary: 04/10/24 17:38 Discharge Ordered Notes: Location: Home rn Problem: new rn Symptoms: have improved rn Condition: Stable rn Diagnosis - Chest pain, unspecified rn Followup: rn - With: Private Physician - When: As needed - Reason: Recheck today's complaints, Re-evaluation by your physician Discharge Instructions: - Discharge Summary Sheet rn - Nonspecific Chest Pain, Adult rn Forms: - Medication Reconciliation Form rn - Antibiotic equine intern - Prescription Opioid Use rn - Patient Portal Instructions rn - Leadership Thank You Letter rn Prescriptions: - Protonix 40 mg Oral Tablet - take 1 tablet ORAL route once daily; 30 tablet; Refills: 0, Product Selection rn Permitted Signatures: Dispatcher [employer] Blair Ramsey, MD MD rn Kingsley, Tarun RN RN ll1 Marcelino, Alexsandra Young RN RN mb9
--- NOTE | 2024-04-10 17:38 | ER ---
Nurse's Notes [facility] Name: iRtesh Mcmillan Age: 23 yrs Sex: Male : 2000 Arrival Date: 04/10/2024 Time: 14:17 Bed 16 Private MD: Diagnosis: Chest pain, unspecified Presentation: 04/10 14:21 Coronavirus screen: Client denies travel out of the [place] in the last 14 days. At this ll1 time, the client does not indicate any symptoms associated with coronavirus-19. Ebola Screen: Patient denies travel to an Ebola-affected area in the 21 days before illness onset. 14:21 Method Of Arrival: Ambulatory ll1 14:30 Chief complaint: Patient states: Int. chest pressure off/on for 3 days. Some burning ll1 noticed with burps. Initial Sepsis Screen: Does the patient meet any 2 criteria? No. Patient's initial sepsis screen is negative. Does the patient have a suspected source of infection? No. Patient's initial sepsis screen is negative. Risk Assessment: Do you want to hurt yourself or someone else? Patient reports no desire to harm self or others. Onset of symptoms was April 08, 2024. 14:30 Acuity: MARY JANE 3 ll1 Triage Assessment: 14:31 General: Appears in no apparent distress. Behavior is calm, cooperative, appropriate ll1 for age. Pain: Complains of pain in chest Pain currently is 3 out of 10 on a pain scale. Quality of pain is described as pressure. Cardiovascular: Reports chest pain. Respiratory: Reports shortness of breath. GI: Reports indigestion. Historical: - Allergies: 14:20 Adderall; ll1 14:20 vasotan; ll1 - PMHx: 14:20 Hypertension; Herniated disc L3-4; ADD/ADHD; ll1 - PSHx: 14:20 None; ll1 - Immunization history:: Adult Immunizations up to date. - Infectious Disease History:: Denies. - Social history:: Smoking status: Patient denies any tobacco usage or history of. - Family history:: not pertinent. - Hospitalizations: : No recent hospitalization is reported. Screenin:19 [facility] ED Fall Risk Assessment (Adult) History of falling in the last 3 months, mb9 including since admission No falls in past 3 months (0 pts) Confusion or Disorientation No (0 pts) Intoxicated or Sedated No (0 pts) Impaired Gait No (0 pts) Mobility Assist Device Used No (0 pt) Altered Elimination No (0 pt) Score/Fall Risk Level 0 - 2 = Low Risk Oriented to surroundings, Maintained a safe environment, Educated pt \T\ family on fall prevention, incl call for assistance when getting out of bed. Abuse screen: Denies threats or abuse. Nutritional screening: No deficits noted. Tuberculosis screening: No symptoms or risk factors identified. Assessment: 15:18 General: Appears in no apparent distress. Behavior is calm, cooperative. Pain: mb9 Complains of pain in chest Pain does not radiate. Pain currently is 0 out of 10 on a pain scale. Quality of pain is described as pressure, Pain began gradually. Neuro: Zarate Agitation-Sedation Scale (RASS): 0 - Alert and Calm Level of Consciousness is awake, alert, obeys commands, Oriented to person, place, time, situation, Appropriate for age. Cardiovascular: Patient's skin is warm and dry. Cardiovascular: Heart tones S1 S2 present. Respiratory: Airway is patent Respiratory effort is even, unlabored, Respiratory pattern is regular, symmetrical. GI: Abdomen is round non-distended. : No signs and/or symptoms were reported regarding the genitourinary system. EENT: No signs and/or symptoms were reported regarding the EENT system. Derm: Skin is pink, warm \T\ dry. Musculoskeletal: Range of motion: intact in all extremities. 17:48 Reassessment: No changes from previously documented assessment. Patient and/or family mb9 updated on plan of care and expected duration. Pain level reassessed. Patient is alert, oriented x 3, equal unlabored respirations, skin warm/dry/pink. Vital Signs: 14:21 BP 155 / 75; Pulse 89; Resp 17; Temp 97.5; Pulse Ox 97% ; Weight 172.37 kg; Height 5 ll1 ft. 9 in. ; Pain 2/10; 16:21 BP 145 / 74; Pulse 74; Resp 18; Pulse Ox 100% on R/A; mb9 17:55 BP 132 / 82; Pulse 70; Resp 18; Pulse Ox 100% on R/A; mb9 14:21 Body Mass Index 56.12 (172.37 kg, 175.26 cm) 1 14:21 Pain Scale: Adult ll1 ED Course: 14:19 Patient arrived in ED. ra3 14:22 Blair Moore MD is Attending Physician. rn 14:29 EKG completed in triage. Results shown to MD. ll1 14:31 Triage completed. ll1 14:31 Arm band placed on. ll1 14:35 EKG done, by ED staff, reviewed by Blair Moore MD. mb9 15:05 Alexsandra Benson, RN is Primary Nurse. mb9 15:11 CT Abd/Pelvis - IV Contrast Only In Process Unspecified. EDMS 15:19 Initial lab(s) drawn, by me, sent to lab. Inserted saline lock: 20 gauge in right mb9 antecubital area, using aseptic technique. Blood collected. Flushed with 10 mL NS. 15:20 Placed in gown. Bed in low position. Call light in reach. Side rails up X 1. Adult w/ mb9 patient. Provided Education on: press call light if needing anything. Client placed on continuous cardiac and pulse oximetry monitoring. NIBP monitoring applied. electronic device monitor on. 15:20 No provider procedures requiring assistance completed. mb9 16:58 Urinalysis w/ reflexes Sent. mb9 17:48 IV discontinued, intact, bleeding controlled, No redness/swelling at site. Pressure mb9 dressing applied. Administered Medications: 15:20 Drug: NS 0.9% IV 1000 ml IV at 1 bolus Per protocol; 1000 mL bolus Route: IV; Rate: 1 mb9 bolus; Site: right antecubital; 16:21 Follow up: Response: No adverse reaction; IV Status: Completed infusion mb9 15:20 Drug: Famotidine IVP 20 mg IVP once; dilute with 10 mL 0.9% NaCl; give over 2 minutes mb9 Route: IVP; Site: right antecubital; 16:21 Follow up: Response: No adverse reaction mb9 15:20 Drug: GI Cocktail without - (Maalox PO 30 ml, Lidocaine Mucous Membrane 2 % 15 mb9 ml) PO once Route: PO; 16:21 Follow up: Response: No adverse reaction mb9 Medication: 15:20 VIS not applicable for this client. mb9 Outcome: 17:38 Discharge ordered by . rn 17:48 Discharged to home ambulatory, with family, mb9 17:48 Condition: stable 17:48 Discharge instructions given to patient, family, Instructed on discharge instructions, follow up and referral plans. Demonstrated understanding of instructions, follow-up care, medications, Prescriptions given X 1, 17:55 Patient left the ED. mb9 Signatures: Dispatcher [employer] EDMS Blair Moore MD MD rn Lewis, Lynsay, RN RN ll1 Alexsandra Benson RN RN mb9 Meaghan Nails ra3 Corrections: (The following items were deleted from the chart) 14:32 14:21 Pulse 89bpm; Resp 17bpm; Pulse Ox 97%; Temp 97.5F; 172.37 kg; Height 5 ft. 9 in.; ll1 BMI: 56.1; Pain 2/10, Adult; ll1
[2024-04-10 18:03] VITALS: TEMP 97.5
[2024-04-10 18:04] VITALS: O2SAT 100
[2024-04-10 18:06] VITALS: BP 132/82
== END 2024-04-10 17:55 | disposition home or self-care (01) ==
LOC: ER 14:17
DX: R07.89 Other chest pain (principal); I10 Essential (primary) hypertension
CPT/HCPCS: 85025; 81001; 36415; 82565; 84484; 83690; 80053; 74177; Q9967; J7030

== ENCOUNTER 2024-07-18 20:45 | Emergency (ER) | payer OTHER ==
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
[2024-07-18] MEDS ORDERED: KETOROLAC 10 MG TAB ONE (22:00)
[2024-07-18] MEDS ORDERED: methocarbamoL 750 MG TAB ONE (22:00)
[2024-07-18] MEDS ORDERED: HYDROCODONE/APAP 5/325 MG TAB ONE (22:01)
--- NOTE | 2024-07-18 22:40 | RAD REPORT ---
EXAMINATION: CT LUMBAR SPINE WITHOUT CONTRAST CLINICAL INDICATION: Male, 23 years old. fall spinal pain TECHNIQUE: Axial CT images were obtained through the lumbar spine in soft tissue and bone windows wit hout intravenous contrast. Coronal and Sagittal reformatted images were created from the data set. One or more of the following dose reduction techniques were used: Automated exposure control, adjustm ent of the mA and/ or kV according to patient size, and/or iterative reconstruction. Unless otherwise specified, incidental findings do not require dedicated imaging follow-up. COMPARISON: 09/13/[address] abdomen and pelvis 04/10/2024 FINDINGS: For purposes of this dictation, it is assumed that there are 5 non rib-bearing lumbar type vertebrae, and the most caudal fully segmented lumbar vertebra is labeled L5. ALIGNMENT: The lumbar spine demonstrates normal alignment without scoliosis or spondylolisthesis. BONES: No significant soft tissue abnormalities. No aggressive osseous lesions. DISCS: Intervertebral disc space heights are maintained. LEVELS: Progressive broad-based posterior disc bulge at L4-5, contributing to moderate central canal stenosis. Stable posterior disc bulge with endplate remodeling at L3-4. No visualized abnormality within the spinal canal. SOFT TISSUE: No soft tissue abnormalities. IMPRESSION: Progressive broad-based posterior disc bulge at L4-5 contributing to moderate central canal stenosis.
--- NOTE | 2024-07-18 23:51 | ER ---
Nurse's Notes [facility] Name: Ritesh Mcmillan Age: 23 yrs Sex: Male : 2000 Arrival Date: 07/18/2024 Time: 20:45 Bed 8 Private MD: Diagnosis: Subacute disc herniation L4-L5, Acute fall at home, Acute lumbar spinal contusion Presentation: 07/18 21:21 Chief complaint: Patient states: MID BACK PAIN S/P SLIP AND FALL TODAY AT 1815. NO LOC cm10 DID NOT HIT HEAD. PT STATES PAIN IS WORSE WITH INSPIRATION. Coronavirus screen: Client denies travel out of the [place] in the last 14 days. Ebola Screen: Patient denies travel to an Ebola-affected area in the 21 days before illness onset. No symptoms or risks identified at this time. Initial Sepsis Screen: Does the patient meet any 2 criteria? No. Patient's initial sepsis screen is negative. Does the patient have a suspected source of infection? No. Patient's initial sepsis screen is negative. Risk Assessment: Do you want to hurt yourself or someone else? Patient reports no desire to harm self or others. Onset of symptoms was July 18, 2024. 21:21 Method Of Arrival: Wheelchair cm10 21:21 Acuity: MARY JANE 4 cm10 Triage Assessment: 21:22 General: Appears in no apparent distress. uncomfortable, Behavior is calm, cooperative. cm10 Pain: Complains of pain in back Pain does not radiate. Pain currently is 8 out of 10 on a pain scale. Quality of pain is described as throbbing, Pain began 3 hours ago. Neuro: No deficits noted. Level of Consciousness is awake, alert, obeys commands, Oriented to person, place, time, situation. Respiratory: No deficits noted. Airway is patent Respiratory effort is even, unlabored, Respiratory pattern is regular, symmetrical. Historical: - Allergies: 21:22 Adderall; cm10 21:22 vasotan; cm10 - PMHx: 21:22 ADD/ADHD; Herniated disc L3-4; Hypertension; cm10 - Immunization history:: Adult Immunizations up to date. - Infectious Disease History:: Denies. - Social history:: Smoking status: Patient denies any tobacco usage or history of. - Family history:: not pertinent. Screenin:[facility] ED Fall Risk Assessment (Adult) History of falling in the last 3 months, cp4 including since admission Yes- single mechanical fall (1 pt) Confusion or Disorientation No (0 pts) Intoxicated or Sedated No (0 pts) Impaired Gait No (0 pts) Mobility Assist Device Used No (0 pt) Altered Elimination No (0 pt) Score/Fall Risk Level 0 - 2 = Low Risk Oriented to surroundings, Maintained a safe environment, Assessed \T\ reinforced patient's understanding of fall precautions, Hourly rounding (assess needs \T\ fall precautionary measures) done. Abuse screen: Denies threats or abuse. Nutritional screening: No deficits noted. Tuberculosis screening: No symptoms or risk factors identified. Assessment: 22:05 General: Appears in no apparent distress. uncomfortable, Behavior is calm, cooperative, cp4 appropriate for age. Pain: Complains of pain in back Pain does not radiate. Pain currently is 5 out of 10 on a pain scale. Neuro: Level of Consciousness is awake, alert, obeys commands, Oriented to person, place, time, situation. Cardiovascular: Patient's skin is warm and dry. Respiratory: Airway is patent Respiratory effort is even, unlabored. GI: No signs and/or symptoms were reported involving the gastrointestinal system. : No signs and/or symptoms were reported regarding the genitourinary system. EENT: No signs and/or symptoms were reported regarding the EENT system. Derm: No signs and/or symptoms reported regarding the dermatologic system. Musculoskeletal: Parent/caregiver report the patient having pain in back. Vital Signs: 21:21 BP 153 / 89; Pulse 82; Resp 18; Temp 98.4(TE); Pulse Ox 96% on R/A; Weight 174.1 kg; cm10 Height 5 ft. 9 in. ; Pain 8/10; 23:59 BP 148 / 84; Pulse 81; Resp 18; Pulse Ox 96% ; cp4 21:21 Body Mass Index 56.68 (174.10 kg, 175.26 cm) cm10 21:21 Pain Scale: Adult cm10 Eric Coma Score: 07/19 04:16 Eye Response: spontaneous(4). Motor Response: obeys commands(6). Verbal Response: sp4 oriented(5). Total: 15. ED Course: 07/18 20:48 Patient arrived in ED. gm2 20:50 Potepalov, Minh, MD is Attending Physician. sp4 21:22 Triage completed. cm10 21:22 Arm band placed on right wrist. Patient placed in waiting room. cm10 22:05 Bed in low position. Call light in reach. Side rails up X 1. cp4 22:05 No provider procedures requiring assistance completed. Patient did not have IV access cp4 during this emergency room visit. 22:07 Deyanira Wills is Primary Nurse. cp4 22:20 CT Lumbar Spine Wo Con In Process Unspecified. EDMS 23:59 Provided Education on: degenerative disc disease. cp4 Administered Medications: 22:04 Drug: HYDROcodone-acetaminophen PO 5 mg-325 mg 2 tabs PO once Route: PO; cp4 07/19 00:01 Follow up: Response: No adverse reaction; Pain is decreased cp4 12 22:04 Drug: Methocarbamol PO 1500 mg PO once Route: PO; cp4 07/19 00:01 Follow up: Response: No adverse reaction; Pain is decreased cp4 07/18 22:04 Drug: Ketorolac PO 10 mg PO once Route: PO; cp4 07/19 00:01 Follow up: Response: No adverse reaction; Pain is decreased cp4 Medication: 12 22:05 VIS not applicable for this client. cp4 Outcome: 23:50 Discharge ordered by . sp4 23:59 Discharged to home ambulatory, cp4 23:59 Condition: stable 23:59 Discharge instructions given to patient, family, Instructed on discharge instructions, follow up and referral plans. medication usage, Demonstrated understanding of instructions, follow-up care, medications, Prescriptions given X 3, 07/19 00:00 Patient left the ED. cp4 Signatures: Dispatcher [employer] EDNV Minh Moyer MD MD sp4 Holly Gabriel RN RN Deyanira Munguia cp4 Mary Connor gm2
--- NOTE | 2024-07-18 23:51 | EDPHYS ---
Physician Documentation [facility] Name: Ritesh Mcmillan Age: 23 yrs Sex: Male : 2000 Arrival Date: 07/18/2024 Time: 20:45 Bed 8 Private MD: ED Physician Minh Moyer HPI: 07/18 20:50 This 23 yrs old Other Race Male presents to ER via Unassigned with complaints of Fall sp4 Injury, Low Back Pain. 07/19 04:16 23-year-old male presents with acute fall at home associated with lower back pain. sp4 Patient is suffering from morbid obesity. Also suffering from ADHD and hypertension.. Historical: - Allergies: 07/18 21:22 Adderall; cm10 21:22 vasotan; cm10 - PMHx: 21:22 ADD/ADHD; Herniated disc L3-4; Hypertension; cm10 - Immunization history:: Adult Immunizations up to date. - Infectious Disease History:: Denies. - Social history:: Smoking status: Patient denies any tobacco usage or history of. - Family history:: not pertinent. ROS: 07/19 04:16 Constitutional: Negative for fever, chills, and weight loss, positive for acute lower sp4 back pain secondary to the fall All other systems are negative, Exam: 04:16 Constitutional: This is a well developed, well nourished patient who is awake, alert, sp4 and in no acute distress. Morbidly overweight male Head/Face: Normocephalic, atraumatic. Eyes: Pupils equal round and reactive to light, extra-ocular motions intact. Lids and lashes normal. Conjunctiva and sclera are not injected. Cornea within normal limits. Periorbital areas with no swelling, redness, or edema. ENT: Nares patent. No nasal discharge, no septal abnormalities noted. Tympanic membranes are normal and external auditory canals are clear. Oropharynx with no redness, swelling, or masses, exudates, or evidence of obstruction, uvula midline. Mucous membranes moist. Neck: Trachea midline, no thyromegaly or masses palpated, and no cervical lymphadenopathy. Supple, full range of motion without nuchal rigidity, or vertebral point tenderness. Chest/axilla: Normal chest wall appearance and motion. Nontender with no deformity. No lesions are appreciated. Cardiovascular: Regular rate and rhythm with a normal S1 and S2. No gallops, murmurs, or rubs. Normal PMI, no JVD. No pulse deficits. Respiratory: Lungs have equal breath sounds bilaterally, clear to auscultation and percussion. No rales, rhonchi or wheezes noted. No increased work of breathing, no retractions or nasal flaring. Abdomen/GI: Soft, with normal bowel sounds. No distension or tympany. No guarding or rebound. No evidence of tenderness throughout. Back: No spinal tenderness. No costovertebral tenderness. Skin: Warm, dry with normal turgor. Normal color with no rashes, no lesions, and no evidence of cellulitis. MS/ Extremity: Pulses equal, no cyanosis. Neurovascular intact. Full, normal range of motion. Neuro: Awake and alert, GCS 15, oriented to person, place, time, and situation. Cranial nerves II-XII grossly intact. Motor strength 5/5 in all extremities. Sensory grossly intact. Psych: Awake, alert, with orientation to person, place and time. Behavior, mood, and affect are within normal limits Vital Signs: 07/18 21:21 BP 153 / 89; Pulse 82; Resp 18; Temp 98.4(TE); Pulse Ox 96% on R/A; Weight 174.1 kg; cm10 Height 5 ft. 9 in. ; Pain 8/10; 23:59 BP 148 / 84; Pulse 81; Resp 18; Pulse Ox 96% ; cp4 21:21 Body Mass Index 56.68 (174.10 kg, 175.26 cm) cm10 21:21 Pain Scale: Adult cm10 Eric Coma Score: 07/19 04:16 Eye Response: spontaneous(4). Motor Response: obeys commands(6). Verbal Response: sp4 oriented(5). Total: 15. MDM: 07/18 20:51 Medical Screening Exam initiated sp4 23:40 ED course: EXAMINATION: CT LUMBAR SPINE WITHOUT CONTRAST CLINICAL INDICATION: Male, 23 sp4 years old. fall spinal pain TECHNIQUE: Axial CT images were obtained through the lumbar spine in soft tissue and bone windows without intravenous contrast. Coronal and Sagittal reformatted images were created from the data set. One or more of the following dose reduction techniques were used: Automated exposure control, adjustment of the mA and/ or kV according to patient size, and/or iterative reconstruction. Unless otherwise specified, incidental findings do not require dedicated imaging follow-up. COMPARISON: 09/13/[address] abdomen and pelvis 04/10/2024 FINDINGS: For purposes of this dictation, it is assumed that there are 5 non rib-bearing lumbar type vertebrae, and the most caudal fully segmented lumbar vertebra is labeled L5. ALIGNMENT: The lumbar spine demonstrates normal alignment without scoliosis or spondylolisthesis. BONES: No significant soft tissue abnormalities. No aggressive osseous lesions. DISCS: Intervertebral disc space heights are maintained. LEVELS: Progressive broad-based posterior disc bulge at L4-5, contributing to moderate central canal stenosis. Stable posterior disc bulge with endplate remodeling at L3-4. No visualized abnormality within the spinal canal. SOFT TISSUE: No soft tissue abnormalities. IMPRESSION: Progressive broad-based posterior disc bulge at L4-5 contributing to moderate central canal stenosis. . ED course: CT revealed - IMPRESSION: Progressive broad-based posterior disc bulge at L4-5 contributing to moderate central canal stenosis. . 07/19 04:16 Differential diagnosis: abrasion, closed head injury, contusion, fracture, laceration, sp4 multiple trauma. Data reviewed: vital signs, nurses notes, radiologic studies, CT scan. 07/18 21:50 Order name: CT Lumbar Spine Wo Con sp4 Administered Medications: 07/18 22:04 Drug: HYDROcodone-acetaminophen PO 5 mg-325 mg 2 tabs PO once Route: PO; cp4 07/19 00:01 Follow up: Response: No adverse reaction; Pain is decreased cp4 07/18 22:04 Drug: Methocarbamol PO 1500 mg PO once Route: PO; cp4 07/19 00:01 Follow up: Response: No adverse reaction; Pain is decreased cp4 07/18 22:04 Drug: Ketorolac PO 10 mg PO once Route: PO; cp4 07/19 00:01 Follow up: Response: No adverse reaction; Pain is decreased cp4 Disposition: 04:19 Chart complete. sp4 Disposition Summary: 07/18/24 23:50 Discharge Ordered Notes: Location: Home sp4 Problem: new sp4 Symptoms: have improved sp4 Condition: Stable sp4 Diagnosis - Subacute disc herniation L4-L5, Acute fall at home, Acute lumbar spinal contusion sp4 Followup: sp4 - With: Private Physician - When: 7 - 10 days - Reason: Recheck today's complaints Discharge Instructions: - Discharge Summary Sheet sp4 - Degenerative Disk Disease sp4 Forms: - Patient Portal Instructions sp4 Prescriptions: - naproxen 500 mg Oral tablet - take 1 tablet ORAL route every 12 hours PRN pain; 50 tablet; Refills: 0, sp4 Product Selection Permitted - tramadol 100 mg Oral tablet - take 1 tablet ORAL route every 8 hours as needed for pain; 30 tablet; Refills: sp4 0, Product Selection Permitted - methocarbamol 750 mg Oral tablet - take 2 tablets ORAL route every 8 hours for 2 days PRN Pain; 60 tablet; sp4 Refills: 0, Product Selection Permitted Signatures: Dispatcher [employer] EDMS Minh Moyer MD MD sp4 Holly Gabriel RN RN cm10 Deyanira Wills cp4 Corrections: (The following items were deleted from the chart) 07/18 21:50 21:50 Spine Lumbar Wo Con+CT.RAD.BRZ ordered. EDMS EDMS
[2024-07-19 07:32] VITALS: TEMP 98.4; O2SAT 96
[2024-07-19 07:33] VITALS: BP 148/84
== END 2024-07-19 | disposition home or self-care (01) ==
LOC: ER 20:45
DX: M51.26 Other intervertebral disc displacement, lumbar region (principal); S34.105A Unspecified injury to L5 level of lumbar spinal cord, initial encounter; W18.30XA Fall on same level, unspecified, initial encounter; Y92.009 Unspecified place in unspecified non-institutional (private) residence as the place of occurrence of the external cause; E66.01 Morbid (severe) obesity due to excess calories
CPT/HCPCS: 72131; 99283

== ENCOUNTER 2024-08-15 22:03 | Emergency (ER) | payer OTHER ==
--- OUTSIDE RECORDS SUMMARY | 2024-08-15 22:06 | XMS REPORT | Continuity of Care Document ---
Author Name Unknown Address [address] [facility] [address] [place] [address] [facility] thconnect Address [address] [facility]. [address] [place] [address] Care Team Providers Care Customer Service Correspondence Clerk Name Role Phone PILI JOHNSON Primary Care Physician Lesly JESU Ibarra Attending Clinician Unavailable JESU CUEVAS Attending Clinician Unavailable ABBIE LAW Attending Clinician Unavailab le Doctor Unassigned, [facility] Attending Clinician U navailable [employer] WARRANTY MANAGERAbbie Attending Clinician [phone] Payers Payer Name Policy Type Policy Number Effective Date Expirati on Date Source HIM [facility] [id number] 2023 00:00:00 Allergies, Adverse Reactions, Alerts Allergy Name Allergy Type Status Severity Reaction(s) Onset Date Inactive Date Treating Clinician Comments Source HYDROXYZ INE HCL DRUG INGREDI Active SOB 10-10 00:00: 00 [facility] BIMATOPR OST DRUG INGREDI Active Hives 10-10 00:00: 00 [facility] Hydroxyz ine Hcl Propensi ty to adverse reaction s Active Shortness of Breath 10-10 00:00: 00 [facility] Bimatopr ost Propensi ty to adverse reaction s Active Hives 10-10 00:00: 00 [facility] DEXTROAM PHETAMIN E-AMPHET AMINE DRUG Active Other-Cmnt 03-22 00:00: 00 [facility] Dextroam phetamin e-Amphet amine Propensi ty to adverse reaction s Active Other - See comments 03-22 00:00: 00 Made hyper [facility] Social History Social Habit Start Date Stop Date Quantity Comments Source [facility] to SARS-CoV-2 (event) 2022-09-30 00:00:00 2022-10-10 09:45:00 Not sure [facility] History of Social function 2019-02-21 00:00:00 2019-02-21 00:00:00 [facility] Sex assigned at 2000 00:00:00 2000 00:00:00 [facility] Smoking Status Start Date Stop Date Source Tobacco smoking consumption unknown [facility] Medications Ordered Medication Name Filled Medication Name Start Date Stop Date Current Medication? Ordering Clinician Indication Dosage Frequency Signature (SIG) Comments Components Source mupirocin 2 % ointment 02-11 00:00: 00 02-17 04:59 :00 No [id number] Apply to area(s) 3 (three) times daily for 5 days. [facility] fluticasone 50 mcg/actuati on nasal spray 02-06 00:00: 00 Yes USE 1-2 SPRAYS EACH NOSTRIL 2 TIMES A DAY [facility] Vital Signs Vital Name Observation Time Observation Value Comments S [facility] Systolic blood pressure 2024-02-13 02:47:00 148 mm[Hg] [facility] Diastolic blood pressure 2024-02-13 02:47:00 70 mm[Hg] [facility] Heart rate 2024-02-13 02:47:00 86 [facility] 2024-02-13 02:47:00 36.72 Mary Ellen [facility] Respiratory rate 2024-02-13 02:47:00 20 /min [facility] Body height 2024-02-13 02:47:00 172.7 cm [facility] Body weight 2024-02-13 02:47:00 179.398 kg [facility] BMI 2024-02-13 02:47:00 60.14 kg/m2 [facility] Oxygen saturation in Arterial blood by Pulse oximetry 2024-02-13 02:47:00 99 /min [place] o [facility] Body temperature 2022-10-10 16:03:00 36.5 Mary Ellen [facility] Body weight 2022-10-10 16:03:00 170.915 kg [facility] Procedures Procedure Date / Time Performed Performing Clinician Source REFERRAL- REQUEST/RESPONSE 2022-12-07 05:01:00 Doctor Unassigned, [facility] INSURANCE CORRESPONDENCE 2022-10-19 06:01:00 Doc tor Unassigned, [facility] ASSIGNMENT OF BENEFITS 2022-10-10 15:47:01 Docto r Unassigned, [facility] Encounters Start Date/Time End Date/Time Encounter Type Admission Type Attending Clinicians Care Facility Care Department Encounter ID Source 2024-02-12 21:48:00 2024-02-12 22:48:00 Emergency X JESU CUEVAS [facility] ERT [id number] [facility] 2024-02-12 21:48:00 2024-02-12 22:48:00 Emergency Jesu Cuevas [facility] [id number] [facility] 2023-08-23 15:52:29 2023-08-23 15:52:29 Outpatient SFA SFA [id number] J Luis Araujo Desmond 2023-06-26 14:45:43 2023-06-26 14:45:43 Outpatient SFA SFA [id number] J Luis Araujo Desmond 2023-04-26 15:07:58 2023-04-26 15:07:58 Outpatient SFA SFA [id number] J Luis Logan 2022-12-07 00:00:00 2022-12-07 00:00:00 Orders Only Doctor Unassigned, [facility] [id number] [facility] 2022-10-19 00:00:00 2022-10-19 00:00:00 Orders Only Doctor Unassigned, [facility] [id number] [id number] [facility] 2022-10-10 10:20:00 2022-10-10 10:40:00 Office Visit [facility] [id number] [facility] 2022-10-10 10:20:00 2022-10-10 10:20:00 Outpatient R THANH [facility] [id number] [facility] 2022-10-10 00:00:00 2022-10-10 00:00:00 Orders Only Doctor Unassigned, [facility] [id number] [id number] [id number] [facility]
[2024-08-15] MEDS ORDERED: ONDANSETRON 4 MG/2 ML VIAL ONE (22:37)
[2024-08-15] MEDS ORDERED: FAMOTIDINE 20 MG/2 ML VIAL IV ONE (22:37)
[2024-08-15] MEDS ORDERED: NA CHLORIDE 0.9% 1,000 ML ONE (22:37)
[2024-08-15] MEDS ORDERED: ONDANSETRON 4 MG/2 ML VIAL IV PRN (22:58)
[2024-08-15] MEDS ORDERED: NA CHLORIDE 0.9% 1,000 ML IV SCH (23:00)
[2024-08-15 23:40] LABS: Absolute Basophils 0.1 K/uL (0-0.5); Absolute Eosinophils 0.1 K/uL (0-0.5); Absolute Lymphocytes (CBC) 1.6 K/uL (0.7-4.9); Absolute Monocytes 0.5 K/uL (0.1-1.3); Absolute Neutrophil 3.9 K/uL (1.8-8.0); Basophils % 1.2 % (0-1.3); Eosinophils % 1.7 % (0-4.4); Hematocrit 45.3 % (39.6-49.0); Hemoglobin 15.3 g/dL (13.6-17.9); Lymphocytes % 26.4 % (15.3-44.8); MCH 30.4 pg (27.0-35.0); MCHC 33.7 g/dL (32.0-36.0); MCV 90.3 fL (80-100); MPV 8.1 fL (7.6-11.3); Monocytes % 7.6 % (3.3-12.3); Neutrophils % 63.1 % (41.7-73.7); Nucleated Red Blood Cells % 0.1 % (0-0); Platelets 336 thou/uL (152-406); RBC Red Blood Cell Count 5.01 M/uL (4.33-5.43); Red Cell Distribution Width 12.8 % (12.1-15.2)
[2024-08-15 23:49] LABS: Calcium Oxalate Crystals- Ur Few /HPF (None Seen); Specific Gravity > 1.030 (1.005-1.030); Sqamous Epithelial None Seen /HPF (None Seen); Urine Bacteria >50 /HPF (<20); Urine Bilirubin NEGATIVE (Negative); Urine Blood Negative (Negative); Urine Clarity Extremely Turbid (Clear); Urine Color Yellow (Yellow); Urine Culture Reflex Order NOT NEEDED; Urine Glucose NEGATIVE (Negative); Urine Ketones NEGATIVE (Negative); Urine Microscopic Reflex YN ORDER UMIC; Urine Mucus 3+ /HPF (None Seen); Urine Nitrite NEGATIVE (Negative); Urine Protein TRACE (Negative); Urine RBC None Seen /HPF (None Seen); Urine Urobilinogen Normal (Normal); Urine WBC <5 /HPF (<5)
[2024-08-15 23:54] LABS: Albumin 3.7 g/dL (3.4-5.0); Albumin/Globulin Ratio 0.9 (1.1-1.8); Anion Gap 8.6 mEq/L (5.0-15.0); Bilirubin Total 0.2 mg/dL (0.2-1.0); Globulin 4.1 g/dL (2.3-3.5); Potassium 3.6 mEq/L (3.5-5.1); Protein, Total 7.8 g/dL (6.4-8.2)
--- NOTE | 2024-08-16 01:46 | EDPHYS ---
Physician Documentation [facility] Name: Ritesh Mcmillan Age: 23 yrs Sex: Male : 2000 Arrival Date: 08/15/2024 Time: 22:03 Bed 15 Private MD: ED Physician Minh Moyer HPI: 08/16 01:14 This 23 yrs old Male presents to ER via Ambulatory with complaints of Abdominal Pain. sb4 01:14 Patient reports generalized abdominal pain as well as nausea, vomiting, and diarrhea. sb4 He states he symptoms started yesterday and slightly improved today, but returned after eating this evening. Denies any chronic abdominal issues. Denies any prior abdominal surgeries. Denies any fever. Historical: - Allergies: 08/15 22:13 Adderall; ss 22:13 Visotan; ss - Home Meds: 22:13 lisinopril 30 mg Oral tab 1 tab once daily [Active]; ss - PMHx: 22:13 ADD/ADHD; Herniated disc L3-4; Hypertension; ss - PSHx: 22:13 None; ss - Immunization history:: Client reports receiving the 2nd dose of the Covid vaccine. - Infectious Disease History:: Denies. - Social history:: Smoking status: Patient denies any tobacco usage or history of. ROS: 08/16 01:14 Constitutional: Negative for fever, chills, and weight loss, sb4 Abdomen/GI: Positive for nausea, vomiting, and diarrhea, abdominal cramps, All other systems are negative, Exam: 01:14 Head/Face: Normocephalic, atraumatic. Eyes: Extra-ocular motions intact. Periorbital sb4 areas with no swelling, redness, or edema. ENT: Mucous membranes moist. Cardiovascular: Regular rate and rhythm with a normal S1 and S2. Respiratory: No increased work of breathing, no retractions or nasal flaring. Abdomen/GI: Soft, non-tender, no distension. Skin: Warm, dry with normal turgor. Normal color with no rashes, no lesions, and no evidence of cellulitis. 01:14 Constitutional: The patient appears in no acute distress, alert, awake, obese, Vital Signs: 08/15 22:11 BP 163 / 102; Pulse 93; Resp 18; Temp 98.3(TE); Pulse Ox 98% on R/A; Weight 171.46 kg; ss Height 5 ft. 8 in. ; Pain 3/10; 23:33 BP 157 / 70; Pulse 87; Resp 20; Pulse Ox 100% on R/A; kj2 08/16 00:30 BP 150 / 74; Pulse 82; Resp 18; Pulse Ox 100% on R/A; kj2 01:30 BP 146 / 74; Pulse 80; Resp 18; Temp 98; Pulse Ox 100% ; kj2 08/15 22:11 Body Mass Index 57.47 (171.46 kg, 172.72 cm) ss 08/15 22:11 Pain Scale: Adult ss MDM: 08/15 22:15 Medical Screening Exam initiated 4 08/16 01:33 Data reviewed: vital signs, nurses notes, lab test result(s), and as a result, I will sb4 discharge patient. Care significantly affected by the following chronic conditions: Hypertension, Obesity. Counseling: I had a detailed discussion with the patient and/or guardian regarding the historical points, exam findings, and any diagnostic results supporting the discharge/admit diagnosis, the presence of at least one elevated blood pressure reading (>120/80) during this emergency department visit, lab results, to return to the emergency department if symptoms worsen or persist or if there are any questions or concerns that arise at home. 08/15 22:19 Order name: CBC with Diff; Complete Time: 23:46 [facility] 08/15 22:19 Order name: CMP; Complete Time: 23:57 [facility] 08/15 22:19 Order name: Lipase; Complete Time: 23:57 [facility] 08/15 22:19 Order name: Urinalysis w/ reflexes; Complete Time: 23:50 4 08/16 00:01 Order name: Urine Culture [facility] 08/15 22:19 Order name: IV Saline Lock; Complete Time: 23:00 [facility] 08/15 22:19 Order name: Labs collected and sent; Complete Time: 23:00 [facility] 08/15 23:57 Order name: PO challenge; Complete Time: 02:02 [facility] Administered Medications: 08/15 23:28 Drug: Famotidine IVP 20 mg IVP once; dilute with 10 mL 0.9% NaCl; give over 2 minutes kj2 Route: IVP; Site: right antecubital; 08/16 00:22 Follow up: Response: No adverse reaction kj2 08/15 23:28 Drug: NS 0.9% IV 1000 ml IV at 1 bolus Per protocol; to be given as a bolus over 60 kj2 minutes Route: IV; Rate: 1 bolus; Site: right antecubital; 08/16 02:01 Follow up: IV Status: Completed infusion; IV Intake: 1000ml kj2 08/15 23:29 Drug: Ondansetron IVP 4 mg IVP once; over 2 minutes Route: IVP; Site: right antecubital;kj2 08/16 00:23 Follow up: Response: No adverse reaction kj2 Disposition: 21:31 Co-signature as Attending Physician, Minh Moyer MD I agree with the assessment sp4 and plan of care. I reviewed the patient's care provided by the Advanced Practice Provider and agree with the diagnosis and treatment plan. Disposition Summary: 08/16/24 01:46 Discharge Ordered Notes: Location: Home sb4 Problem: new sb4 Symptoms: have improved sb4 Condition: Stable sb4 Diagnosis - Viral gastroenteritis sb4 - UTI/ Urinary tract infection, site not specified sb4 Followup: sb4 - With: Emergency Department - When: As needed - Reason: Trouble breathing, Worsening of condition Discharge Instructions: - Discharge Summary Sheet sb4 - Viral Gastroenteritis, Adult, Mfks-[id number] sb4 - Urinary Tract Infection, Adult, [id number]-nn-Bzzt sb4 - Asymptomatic Bacteriuria sb4 Forms: - Antibiotic Education sb4 - Patient Portal Instructions sb4 - Leadership Thank You Letter sb4 Prescriptions: - ondansetron 4 mg Oral Tablet,disintegrating - take 1 tablet ORAL route every 6 hours As needed; 10 tablet; Refills: 0, sb4 Product Selection Permitted - Cipro 500 mg Oral Tablet - take 1 tablet ORAL route every 12 hours for 7 days; 14 tablet; Refills: 0, sb4 Product Selection Permitted Signatures: Dispatcher [employer] Jessica Don RN RN Silke Gibson PA-C PA-C sb4 Minh Moyer MD MD sp4 Shonna Guerin RN RN kj2 Corrections: (The following items were deleted from the chart) 08/15 22:14 22:13 Allergies: vasotan; [facility] 22:19 22:19 CBC+H.LAB.BRZ ordered. EDMS EDMS 22:19 22:19 COMPREHENSIVE METABOLIC PANEL+C.LAB.BRZ ordered. EDMS EDMS 22:19 22:19 LIPASE+C.LAB.BRZ ordered. EDMS EDMS 22:19 22:19 Urinalysis+U.LAB.BRZ ordered. EDMS EDMS 23:05 23:01 Magnesium ordered. EDMS EDMS 23:05 23:01 Phosphorus ordered. EDMS EDMS 23:05 23:01 Urinalysis w/ reflexes ordered. EDMS EDMS
--- NOTE | 2024-08-16 01:46 | ER ---
Nurse's Notes [facility] Name: Ritesh Mcmillan Age: 23 yrs Sex: Male : 2000 Arrival Date: 08/15/2024 Time: 22:03 Bed 15 Private MD: Diagnosis: Viral gastroenteritis;UTI/ Urinary tract infection, site not specified Presentation: 08/15 22:11 Chief complaint: Patient states: Generalized abd pain, N/V/D that began 1-2 days ago. ss Pt reports he was starting to feel better today, but after eating a few bites, it came back. Coronavirus screen: Client denies travel out of the [place] in the last 14 days. Ebola Screen: Patient denies exposure to infectious person. Patient denies travel to an Ebola-affected area in the 21 days before illness onset. Initial Sepsis Screen: Does the patient meet any 2 criteria? No. Patient's initial sepsis screen is negative. Does the patient have a suspected source of infection? No. Patient's initial sepsis screen is negative. Risk Assessment: Do you want to hurt yourself or someone else? Patient reports no desire to harm self or others. Onset of symptoms was August 14, 2024. 22:11 Method Of Arrival: Ambulatory ss 22:11 Acuity: MARY JANE 3 ss Triage Assessment: 22:16 General: Appears uncomfortable, Behavior is calm, cooperative. General: Appears obese. ss Neuro: Level of Consciousness is awake, alert, obeys commands. Respiratory: Airway is patent Respiratory effort is even, unlabored. GI: Abdomen is non-distended, obese, Abd is non tender Reports lower abdominal pain, upper abdominal pain, diarrhea, nausea, vomiting. : No signs and/or symptoms were reported regarding the genitourinary system. Derm: Skin is pink, warm \T\ dry. normal. Historical: - Allergies: 22:13 Adderall; ss 22:13 Visotan; ss - Home Meds: 22:13 lisinopril 30 mg Oral tab 1 tab once daily [Active]; ss - PMHx: 22:13 ADD/ADHD; Herniated disc L3-4; Hypertension; ss - PSHx: 22:13 None; ss - Immunization history:: Client reports receiving the 2nd dose of the Covid vaccine. - Infectious Disease History:: Denies. - Social history:: Smoking status: Patient denies any tobacco usage or history of. Screenin:35 [facility] ED Fall Risk Assessment (Adult) History of falling in the last 3 months, kj2 including since admission No falls in past 3 months (0 pts) Confusion or Disorientation No (0 pts) Intoxicated or Sedated No (0 pts) Impaired Gait No (0 pts) Mobility Assist Device Used No (0 pt) Altered Elimination No (0 pt) Score/Fall Risk Level 0 - 2 = Low Risk Maintained a safe environment, Hourly rounding (assess needs \T\ fall precautionary measures) done. Abuse screen: Denies threats or abuse. Denies injuries from another. Nutritional screening: No deficits noted. Tuberculosis screening: No symptoms or risk factors identified. Assessment: 22:35 General: Appears in no apparent distress. Behavior is calm, cooperative. Pain: kj2 Complains of pain in abdomen. Neuro: Level of Consciousness is awake, alert, obeys commands, Oriented to person, place, time, situation. Cardiovascular: Patient's skin is warm and dry. Respiratory: Airway is patent Respiratory effort is even, unlabored. GI: Reports diarrhea, nausea, vomiting. : No signs and/or symptoms were reported regarding the genitourinary system. 23:30 Reassessment: Patient appears in no apparent distress at this time. Patient and/or kj2 family updated on plan of care and expected duration. Pain level reassessed. Patient is alert, oriented x 3, equal unlabored respirations, skin warm/dry/pink. 08/16 00:30 Reassessment: Patient appears in no apparent distress at this time. Patient and/or kj2 family updated on plan of care and expected duration. Pain level reassessed. Patient is alert, oriented x 3, equal unlabored respirations, skin warm/dry/pink. 01:30 Reassessment: Patient appears in no apparent distress at this time. Patient and/or kj2 family updated on plan of care and expected duration. Pain level reassessed. Patient is alert, oriented x 3, equal unlabored respirations, skin warm/dry/pink. 02:01 GI: Bowel sounds present X 4 quads. kj2 Vital Signs: 08/15 22:11 BP 163 / 102; Pulse 93; Resp 18; Temp 98.3(TE); Pulse Ox 98% on R/A; Weight 171.46 kg; Height 5 ft. 8 in. ; Pain 3/10; 23:33 BP 157 / 70; Pulse 87; Resp 20; Pulse Ox 100% on R/A; kj2 08/16 00:30 BP 150 / 74; Pulse 82; Resp 18; Pulse Ox 100% on R/A; kj2 01:30 BP 146 / 74; Pulse 80; Resp 18; Temp 98; Pulse Ox 100% ; kj2 08/15 22:11 Body Mass Index 57.47 (171.46 kg, 172.72 cm) ss 08/15 22:11 Pain Scale: Adult ED Course: 08/15 22:08 Patient arrived in ED. gm2 22:13 Silke Law PA-C is PHCP. sb4 22:13 Minh Moyer MD is Attending Physician. sb4 22:13 Triage completed. ss 22:13 Arm band placed on right wrist. ss 22:32 Shonna Guerin RN is Primary Nurse. kj2 22:55 Patient has correct armband on for positive identification. Bed in low position. Call kj2 light in reach. Side rails up X 1. Adult w/ patient. Provided Education on: call light. 22:59 Inserted saline lock: 20 gauge in right antecubital area, using aseptic technique. oe Blood collected. Flushed with 10 mL NS. 08/16 02:01 No provider procedures requiring assistance completed. IV discontinued, intact, kj2 bleeding controlled, No redness/swelling at site. Pressure dressing applied. Administered Medications: 08/15 23:28 Drug: Famotidine IVP 20 mg IVP once; dilute with 10 mL 0.9% NaCl; give over 2 minutes kj2 Route: IVP; Site: right antecubital; 08/16 00:22 Follow up: Response: No adverse reaction kj2 08/15 23:28 Drug: NS 0.9% IV 1000 ml IV at 1 bolus Per protocol; to be given as a bolus over 60 kj2 minutes Route: IV; Rate: 1 bolus; Site: right antecubital; 08/16 02:01 Follow up: IV Status: Completed infusion; IV Intake: 1000ml kj2 08/15 23:29 Drug: Ondansetron IVP 4 mg IVP once; over 2 minutes Route: IVP; Site: right antecubital;kj2 08/16 00:23 Follow up: Response: No adverse reaction kj2 Medication: 08/15 23:43 VIS not applicable for this client. vc1 Intake: 08/16 02:01 IV: 1000ml; Total: 1000ml. kj2 Outcome: 01:46 Discharge ordered by . sb4 02:00 Discharged to home ambulatory, with family, kj2 02:00 Condition: stable 02:00 Discharge instructions given to patient, family, Instructed on discharge instructions, follow up and referral plans. medication usage, Demonstrated understanding of instructions, follow-up care, medications, Prescriptions given X 2, 02:15 Patient left the ED. kj2 Signatures: Jessica Quinones, RN RN ss Trevon Schultz Vanessa RN RN vc1 Silke Law, PA-C PA-C sb4 Mary Connor gm2 Shonna Guerin, PRIYA RN kj2 Corrections: (The following items were deleted from the chart) 08/15 22:14 22:13 Allergies: vasotan; [facility]
[2024-08-16 10:12] VITALS: O2SAT 100
[2024-08-16 10:13] VITALS: BP 146/74; TEMP 98
== END 2024-08-16 02:15 | disposition home or self-care (01) ==
LOC: ER 22:03 → UNDOADMOB 22:58 → ERHOLD 22:58 → UNDODISOB 08-16 02:15 → ER 08-16 02:15
DX: A08.4 Viral intestinal infection, unspecified (principal); N39.0 Urinary tract infection, site not specified
CPT/HCPCS: 96361; 87088; 85025; 81001; 87086; 36415; 83690; 80053; 96375; 96374; 99284; J2405; J7030